=== PATIENT | male | born 1930 | race Caucasian/White ===

== ENCOUNTER 2018-05-03 19:40 | Emergency (ER) | payer MEDICARE, MEDICAID ==
[~2018-05-03] VITALS: Ht 182.9 cm; Wt 79.4 kg
[2018-05-03 20:04] LABS: BASOPHILS % (AUTO) 0 % (0-10); EOSINOPHILS # (AUTO) 0.1 10^3/uL (0.0-0.3); EOSINOPHILS % (AUTO) 2 % (0-10); HEMATOCRIT 38 % (40-54); HEMOGLOBIN 12.6 G/DL (13.3-17.7); LYMPHOCYTES # (AUTO) 1.2 X 10^3 (1.0-4.0); LYMPHOCYTES % (AUTO) 19 % (12-44); MEAN CORPUSCULAR HEMOGLOBIN 32 PG (25-34); MEAN CORPUSCULAR HGB CONC 33 G/DL (32-36); MEAN CORPUSCULAR VOLUME 96 FL (80-99); MEAN PLATELET VOLUME 8.8 FL (7.4-10.4); MONOCYTES # (AUTO) 0.7 X 10^3 (0.0-1.0); MONOCYTES % (AUTO) 11 % (0-12); NEUTROPHILS # (AUTO) 4.2 X 10^3 (1.8-7.8); NEUTROPHILS % (AUTO) 68 % (42-75); PLATELET COUNT 127 10^3/uL (130-400); RED BLOOD COUNT 3.93 10^6/uL (4.35-5.85); RED CELL DISTRIBUTION WIDTH 12.2 % (10.0-14.5); WHITE BLOOD COUNT 6.3 10^3/uL (4.3-11.0)
[2018-05-03 20:18] LABS: ALANINE AMINOTRANSFERASE 21 U/L (0-55); ALBUMIN 3.4 GM/DL (3.2-4.5); ALKALINE PHOSPHATASE 108 U/L (40-136); BILIRUBIN,TOTAL 0.4 MG/DL (0.1-1.0); BUN/CREATININE RATIO 17; CALCIUM 8.9 MG/DL (8.5-10.1); CARBON DIOXIDE 24 MMOL/L (21-32); CHLORIDE 102 MMOL/L (98-107); CREATININE SERUM 1.26 MG/DL (0.60-1.30); GFR ESTIMATED 54; GLUCOSE 102 MG/DL (70-105); POTASSIUM 4.1 MMOL/L (3.6-5.0); SODIUM 137 MMOL/L (135-145); TOTAL PROTEIN 7.3 GM/DL (6.4-8.2)
[2018-05-03 20:18] LABS: BILIRUBIN,URINE NEGATIVE (NEGATIVE); COLOR,URINE RED; GLUCOSE, URINE (UA) NEGATIVE (NEGATIVE); KETONES,URINE NEGATIVE (NEGATIVE); LEUKOCYTE ESTERASE ,URINE 3+ (NEGATIVE); NITRITE,URINE NEGATIVE (NEGATIVE); PH,URINE 6.5 (5-9); PROTEIN,URINE 3+ (NEGATIVE); UROBILINOGEN,URINE 1 MG/DL (NORMAL)
[2018-05-03 20:22] LABS: INR 1.2 (0.8-1.4); PROTHROMBIN TIME PATIENT 15.4 SEC (12.2-14.7)
[2018-05-03 20:24] LABS: VALPROIC ACID 33.1 UG/ML (50.0-100.0)
[2018-05-03 20:25] LABS: BACTERIA,URINE MODERATE /HPF; CLARITY,URINE CLOUDY; RBC,URINE TNTC /HPF; WBC,URINE >100 /HPF
--- NOTE | 2018-05-03 20:53 | Diagnostic Imaging Report ---
PROCEDURE: CT head and CT cervical spine without contrast. TECHNIQUE: Multiple contiguous axial images were obtained through the brain and cervical spine without the use of intravenous contrast. Sagittal and coronal reformations through the cervical spine were then performed. INDICATION: Fall. Altered mental status. Very confused and uncooperative. FINDINGS: CT head: There is marked cortical atrophy. Diffuse periventricular white matter changes. The ventricles are slightly prominent. There is no evidence of intracranial hemorrhage. No mass effect. No extra-axial fluid collections. Basal cisterns are clear. The mastoid air cells are well-aerated and clear. Paranasal sinuses are clear where visualized. No calvarial fractures demonstrated. IMPRESSION: Marked cortical atrophy both supratentorial and infratentorial. No acute abnormalities demonstrated. Cervical spine: Sagittal and coronal reformatted images show good alignment. Body height is well maintained. Facets show good alignment. There is advanced degenerative disc and facet disease throughout most severe centered at C5-C6 and C6-C7. There does not appear to be significant spinal stenosis. There are no fractures demonstrated. There is extremely dense calcification within the carotid arteries bilaterally with probable high-grade stenosis of the internal carotid arteries. IMPRESSION: 1. Advanced degenerative cervical disc disease from C5 through C7. No acute findings along the cervical spine. 2. Extremely dense calcification within the carotid bulbs and proximal internal carotid arteries. Dictated by: Dictated on workstation # [id number]
--- NOTE | 2018-05-03 21:08 | Diagnostic Imaging Report ---
INDICATION: Fall. Altered mental status with confusion. EXAMINATION: Portable chest. FINDINGS: Lungs show relatively good aeration. Median sternotomy changes are present. Heart is enlarged. Mild interstitial prominence noted, bilaterally. No evidence of consolidated infiltrate. No finding to suggest congestive failure. No pleural effusion. No displaced rib fractures. IMPRESSION: Cardiomegaly with postoperative residue. Mild interstitial prominence which may be acute or chronic. Dictated by: Dictated on workstation # [id number]
--- NOTE | 2018-05-03 21:09 | Diagnostic Imaging Report ---
INDICATION: Fall. Altered mental status with confusion. EXAMINATION: AP pelvis and right hip. FINDINGS: Bony pelvis is intact without fracture. SI joints are symmetrical. Pubic symphysis is normal. Femoral heads are in normal articulation, bilaterally. Two views of the right hip shows smooth surface without fracture. Trochanter and neck are normal. No soft tissue calcification. IMPRESSION: Mild degenerative changes without evidence of acute fracture or dislocation. Dictated by: Dictated on workstation # [id number]
--- NOTE | 2018-05-03 21:12 | Diagnostic Imaging Report ---
INDICATION: Fall. Altered mental status. Confusion. EXAMINATION: Three views of the right shoulder. FINDINGS: There is mild cephalad migration of the humeral head with respect to the glenoid consistent with chronic rotator cuff disease. Articulating surfaces are smooth with mild degenerative change. There are no fractures. AC joint shows good alignment with moderate hypertrophic change. IMPRESSION: Degenerative changes, as described, with no evidence of fracture or dislocation. Dictated by: Dictated on workstation # [id number]
[2018-05-03] MEDS ORDERED: AMLO5TAB7 (21:16)
[2018-05-03] MEDS ORDERED: TERA5CAP3 (21:16)
[2018-05-03] MEDS ORDERED: FURO20TA4 (21:16)
[2018-05-03] MEDS ORDERED: FAMO20TA5 (21:16)
[2018-05-03] MEDS ORDERED: GABA-488 (21:16)
[2018-05-03] MEDS ORDERED: DIVA125C10 (21:16)
[2018-05-03] MEDS ORDERED: cefTRIAXone 1 GM/10 ML for IV (ROCEPHIN) ONE (21:27)
[2018-05-03] MEDS ORDERED: NS (IVPB) 0 ML ONE (21:27)
--- NOTE | 2018-05-03 21:27 | ED Fall/Injury ---
General Chief Complaint: Trauma-Non Activation Stated Complaint: FALL Nursing Triage Note: Pt brought to E via EMS. Pt experienced unwitnessed fall at senior care and has L hip bruise. Source: EMS, senior care records (ALL PMH IS FROM [facility], RECORD--NO PRIOR VISITS HERE, NO FAMILY HERE WITH PT. ) Exam Limitations: other (PT WITH DEMENTIA AND UNABLE TO GIVE ANY INFORMATION) History of Present Illness Date Seen by Provider: May 03, 2018 Time Seen by Provider: 19:50 Initial Comments PT ARRIVES VIA EMS FROM [facility] PT HAD UNWITNESSED "FALL" IN DINING ROOM AT 1830 TONIGHT PT HAS DEMENTIA AND IS UNABLE TO ANSWER ANY QUESTIONS PT IS ON ELIQUIS AND HAS A BRUISE TO LEFT HIP EMS ALSO REPORT REDNESS TO RIGHT SHOULDER. NO OTHER INFORMATION IS OBTAINABLE PT HAS BEEN AT [facility] SINCE 03/13/18. CAME THERE FROM [facility] PREVIOUSLY FROM [facility] RECORD LISTS DAUGHTER LEGAL GUARDIAN, FROM SAME PREVIOUS ADDRESS FOR PT IN [place], [place] PT IS DNR Location Injury Occurred: senior care PCP: DR. BRUCE Allergies and Home Medications Allergies Coded Allergies: No Allergy Information Available (Unverified , 05/03/18) Home Medications Nitrofurantoin Monohyd/M-Cryst 100 Mg Capsule, 100 MG PO BID Prescribed by: HARLEY JERNIGAN on 05/03/18 7142 Patient Home Medication List Home Medication List Reviewed: Yes Review of Systems Review of Systems Constitutional: other (UNEBLE TO OBTAIN) Past Ujhnjef-Yfnnwh-Sdwoei Hx Patient Social History Smoking Status: Unknown if Ever Smoked 2nd Hand Smoke Exposure: No Recent Foreign Travel: No Contact w/Someone Who Travel: No Recent Infectious Disease Expo: No Physical Abuse: No Sexual Abuse: No Immunizations Up To Date Tetanus Booster (TDap): Unknown Past Medical History Surgeries: No (UNKNOWN) Cardiac: Yes (ATRIAL FLUTTER; CHF) Atrial Fibrillation, High Cholesterol, Hypertension 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) Dementia Sexually Transmitted Disease: No Genitourinary: Yes (chronic kidney disease) Benign Prostatic Hyperpl, Renal Failure Gastrointestinal: Yes (DYSPNAGIA) Gastroesophageal Reflux Musculoskeletal: Yes (GENERALIZED WEAKNESS, GAIT DISTURBANCE) HEENT: Yes Dysphagia Psychosocial: Yes (psychotic disorder w/delusions; AGITATION AND RESTLESSNESS) Depression Integumentary: No Blood Disorders: No Adverse Reaction/Blood Tranf: No Physical Exam Vital Signs Vital Signs - First Documented 05/03/18 19:43 Temp 99.2 Pulse 98 Resp 18 B/P (MAP) 70/35 (47) Pulse Ox 94 O2 Delivery Room Air Capillary Refill : Less Than 3 Seconds Height, Weight, BMI Height: 6'0" Weight: 175lbs. oz. 79.539602zm; BMI Method:Estimated General Appearance: WD/WN, no apparent distress, other (SMILING, TALKATIVE BUT IS COMPLETELY NONSENSICAL. PT DOES NOT APPEAR TO BE TENDER ANYWHERE HE IS TOUCHED. ON DIRECT QUESTIONING OF PT IF HE HURTS ANYWHERE, HE STATES NO. ) HEENT: PERRL/EOMI, normal ENT inspection, other (ORAL MUCOSA MILDLY DRY; NO EXTERNAL EVIDNECE OF TRAUMA TO HEAD) Neck: non-tender, full range of motion, supple, normal inspection Cardiovascular: normal peripheral pulses, no edema, no JVD, no murmur, irregularly irregular Respiratory: chest non-tender, normal breath sounds, no respiratory distress, no accessory muscle use, other (OLDER APPEARING BRUISE TO LEFT LATERAL CHEST/ RIB AREA) Gastrointestinal: normal bowel sounds, non tender, soft, no organomegaly Back: normal inspection, no CVA tenderness, no vertebral tenderness Extremities: normal range of motion, non-tender, no pedal edema, no calf tenderness, normal capillary refill, other (FAINT, SMALL BRUISE TO RIGHT HIP; LARGER, OLDER APPEARING BRUISE TO LEFT HIP. ) Neurologic/Psychiatric: no motor/sensory deficits, alert, normal mood/affect, other (PT DOES NOT FOLLOW COMMANDS, BUT GROSS NEUROLOGICAL APPEARS INTACT. SPEECH IS NON-SENSICAL. PT SMILING AND COOPERATIVE. PT DOES MOVE HIMSELF TO SITTING POSITION IN MIDDLE OF ER CART WITHOUT DIFFICULTY. ) Skin: normal color, warm/dry, ecchymosis Progress/Results/Core Measures Results/Orders Lab Results Laboratory Tests Test 05/03/18 19:50 05/03/18 20:12 Range/Units White Blood Count 6.3 4.3-11.0 10^3/uL Red Blood Count 3.93 L 4.35-5.85 10^6/uL Hemoglobin 12.6 L 13.3-17.7 G/DL Hematocrit 38 L 40-54 % Mean Corpuscular Volume 96 80-99 FL Mean Corpuscular Hemoglobin 32 25-34 PG Mean Corpuscular Hemoglobin Concent 33 32-36 G/DL Red Cell Distribution Width 12.2 10.0-14.5 % Platelet Count 127 L 130-400 10^3/uL Mean Platelet Volume 8.8 7.4-10.4 FL Neutrophils (%) (Auto) 68 42-75 % Lymphocytes (%) (Auto) 19 12-44 % Monocytes (%) (Auto) 11 0-12 % Eosinophils (%) (Auto) 2 0-10 % Basophils (%) (Auto) 0 0-10 % Neutrophils # (Auto) 4.2 1.8-7.8 X 10^3 Lymphocytes # (Auto) 1.2 1.0-4.0 X 10^3 Monocytes # (Auto) 0.7 0.0-1.0 X 10^3 Eosinophils # (Auto) 0.1 0.0-0.3 10^3/uL Basophils # (Auto) 0.0 0.0-0.1 10^3/uL Prothrombin Time 15.4 H 12.2-14.7 SEC INR Comment 1.2 0.8-1.4 Activated Partial Thromboplast Time 29 24-35 SEC Sodium Level 137 135-145 MMOL/L Potassium Level 4.1 3.6-5.0 MMOL/L Chloride Level 102 98-107 MMOL/L Carbon Dioxide Level 24 21-32 MMOL/L Anion Gap 11 5-14 MMOL/L Blood Urea Nitrogen 21 H 7-18 MG/DL Creatinine 1.26 0.60-1.30 MG/DL Estimat Glomerular Filtration Rate 54 BUN/Creatinine Ratio 17 Glucose Level 102 70-105 MG/DL Calcium Level 8.9 8.5-10.1 MG/DL Corrected Calcium 9.4 8.5-10.1 MG/DL Total Bilirubin 0.4 0.1-1.0 MG/DL Aspartate Amino Transf (AST/SGOT) 22 5-34 U/L Alanine Aminotransferase (ALT/SGPT) 21 0-55 U/L Alkaline Phosphatase 108 40-136 U/L Troponin I < 0.30 <0.30 NG/ML Total Protein 7.3 6.4-8.2 GM/DL Albumin 3.4 3.2-4.5 GM/DL Valproic Acid (Depakene) Level 33.1 L 50.0-100.0 UG/ML Urine Color RED H Urine Clarity CLOUDY H Urine pH 6.5 5-9 Urine Specific [place] 1.020 1.016-1.022 Urine Protein 3+ H NEGATIVE Urine Glucose (UA) NEGATIVE NEGATIVE Urine Ketones NEGATIVE NEGATIVE Urine Nitrite NEGATIVE NEGATIVE Urine Bilirubin NEGATIVE NEGATIVE Urine Urobilinogen 1 NORMAL MG/DL Urine Leukocyte Esterase 3+ H NEGATIVE Urine RBC (Auto) 5+ H NEGATIVE Urine RBC TNTC H /HPF Urine WBC >100 H /HPF Urine Crystals NONE /LPF Urine Bacteria MODERATE H /HPF Urine Casts NONE /LPF Urine Mucus NEGATIVE /LPF Urine Culture Indicated YES My Orders Orders - HARLEY JERNIGAN DO Saline Lock/Iv-Start (05/03/18 19:51) Ekg Tracing (05/03/18 19:51) Monitor-Rhythm Ecg Trace Only (05/03/18 19:51) Ct Head/Cervical Spine Wo (05/03/18 19:51) Cbc With Automated Diff (05/03/18 19:51) Comprehensive Metabolic Panel (05/03/18 19:51) Protime With Inr (05/03/18 19:51) Partial Thromboplastin Time (05/03/18 19:51) Troponin I (05/03/18 19:51) Ua Culture If Indicated (05/03/18 19:51) Valproic Acid (05/03/18 19:51) Chest 1 View, Ap/Pa Only (05/03/18 19:51) Shoulder, Right, 3 Views (05/03/18 19:51) Pelvis With Right Hip 2-3views (05/03/18 19:51) Urine Culture (05/03/18 20:12) Ceftriaxone For Iv Use (Rocephin For I (05/03/18 21:30) Ceftriaxone For Iv Use (Rocephin For I (05/03/18 21:27) Ns (Ivpb) (Sodium Chloride 0.9% Ivpb Bag (05/03/18 21:27) Ns (Ivpb) (Sodium Chloride 0.9% Ivpb Bag (05/03/18 21:30) Hip, Left, 2 Views (05/03/18 21:32) Saline Lock/Iv-Start (05/03/18 21:36) Lactated Ringers (Lr 1000 Ml Iv Solution (05/03/18 21:36) Medications Given in ED Current Medications Medications Dose Ordered Sig/Giovanna Route Start Time Stop Time Status Last Admin Dose Admin Ceftriaxone Sodium 1000 mg/ Sodium Chloride 50 ml @ 100 mls/hr ONCE ONCE IV 05/03/18 21:30 05/03/18 22:48 DC 05/03/18 21:36 100 MLS/HR Lactated Ringer's 1,000 ml @ 0 mls/hr Q0M ONCE IV 05/03/18 21:36 05/03/18 21:37 DC 05/03/18 21:42 1,000 MLS/HR Vital Signs/I&O 05/03/18 05/03/18 19:43 22:47 Temp 99.2 99.0 Pulse 98 87 Resp 18 15 B/P (MAP) 70/35 (47) 104/79 (87) Pulse Ox 94 95 O2 Delivery Room Air Room Air Blood Pressure Mean: 47 Progress Progress Note : Progress Note NO DETERIORATION IN PT'S CONDITION DURING ER STAY Initial ECG Impression Date: May 03, 2018 Initial ECG Impression Time: 20:02 Initial ECG Rate: 88 Initial ECG Rhythm: A Fib/Flutter Initial ECG Comparisson: No Previous ECG Available Diagnostic Imaging Comments CT HEAD/CERVICAL SPINE--ATROPHY, CHRONIC DEGENERATIVE CHANGES, NO ACUTE PROCESS. 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 PER RADIOLOGIST REPORT @ 2058 CXR--CHRONIC CHANGES, NO ACUTE PROCESS RIGHT SHOULDER XRAY--CHRONIC DEGENERATIVE CHANGES, NO ACUTE PROCESS PELVIS AND RIGHT HIP--CHRONIC DEGENERATIVE CHANGES, NO ACUTE PROCESS ALL PER RADIOLOGIST REPORTS @ 2122 XRAYS OF LEFT HIP--NO ACUTE PROCESS, PENDING RADIOLOGIST REVIEW Departure Impression Primary Impression: UNWITNESSED FALL VS SYNCOPE Additional Impressions: Dementia ANTICOAGULATION THERAPY UTI (urinary tract infection) Contusion of right hip Contusion of right shoulder Contusion of left hip Contusion of left chest wall Disposition: 03 XFER SNF Condition: Stable Departure-Patient Inst. Referrals: VIRGINIA BRUCE DO (PCP/Family) Primary Care Physician Patient Instructions: CHEST CONTUSION, Contusion (DC), Preventing Falls in the Older Adult, Urinary Tract Infection, Adult (DC) Add. Discharge Instructions: CONTINUE YOUR REGULAR MEDICATIONS PRESCRIBED FOLLOW UP WITH YOUR DR THIS WEEK FOR RECHECK All discharge instructions reviewed with patient and/or family. Voiced understanding. Scripts Nitrofurantoin Monohyd/M-Cryst (Macrobid 100 mg Capsule) 100 Mg Capsule 100 MG PO BID, #20 CAP Prov: HARLEY JERNIGAN DO 05/03/18 HARLEY JERNIGAN DO May 03, 2018 21:27
[2018-05-03] MEDS ORDERED: cefTRIAXone FOR IV USE 1,000 MG in NS (IVPB) 50 ML IV ONE (21:30)
[2018-05-03] MEDS ORDERED: NS (IVPB) 50 ML ONE (21:30)
[2018-05-03] MEDS ORDERED: LACTATED RINGERS 1,000 ML IV ONE (21:36)
[2018-05-03] MEDS ORDERED: NITR-65 PO (21:53)
--- NOTE | 2018-05-03 21:57 | Diagnostic Imaging Report ---
INDICATION: Left hip pain. Poor historian. EXAMINATION: Two views of the left hip. FINDINGS: Femoral head is in normal articulation with the acetabulum. There are mild degenerative changes. The articulating surfaces are smooth without fracture. The femoral neck and trochanter are intact. No hypertrophic bony changes. No soft tissue calcifications. IMPRESSION: Mild degenerative disease with no acute abnormalities. Dictated by: Dictated on workstation # [id number]
[2018-05-03 22:47] VITALS: BP 104/79
== END 2018-05-03 22:47 ==
LOC: ER 19:44
DX: S70.02XA Contusion of left hip, initial encounter (principal); S70.01XA Contusion of right hip, initial encounter; S40.011A Contusion of right shoulder, initial encounter; S20.222A Contusion of left back wall of thorax, initial encounter; F03.91 Unspecified dementia, unspecified severity, with behavioral disturbance; N39.0 Urinary tract infection, site not specified; I48.91 Unspecified atrial fibrillation; E78.00 Pure hypercholesterolemia, unspecified; I12.9 Hypertensive chronic kidney disease with stage 1 through stage 4 chronic kidney disease, or unspecified chronic kidney disease; N18.9 Chronic kidney disease, unspecified; N40.0 Benign prostatic hyperplasia without lower urinary tract symptoms; K21.9 Gastro-esophageal reflux disease without esophagitis; Z79.01 Long term (current) use of anticoagulants; W18.39XA Other fall on same level, initial encounter; Y92.129 Unspecified place in nursing home as the place of occurrence of the external cause
CPT/HCPCS: 36415; 70450; 71045; 72125; 73030; 73502; 80053; 80164; 81000; 84484; 85025; 85610; 85730; 87088; 93005; 93041

== ENCOUNTER → 2018-06-05 | Outpatient (CLI) | payer MEDICARE, MEDICAID ==
[~2018-06-05] MED LIST: ACET325T38 PO; AMLO5TAB7 PO; APIX5TAB PO; CLIN300C3 PO; DIVA-76 PO; DIVA125C10; FAMO20TA5 PO; FURO20TA4 PO; GABA-488 PO; LACT20SO2 PO; LOPE-134 PO; MAGN400O7 PO; MELA5TAB14 PO; NITR-65 PO; OXYB5TAB9 PO; QUET50TA PO; TERA5CAP3 PO
--- NOTE | 2018-06-05 18:15 | Diagnostic Imaging Report ---
EXAMINATION: Mandible. INDICATION: Swollen jaw. Three views were obtained. There are no prior studies available for comparison. FINDINGS: There is no fracture, dislocation, or acute bony abnormality evident. The patient is edentulous. There does seem to be soft tissue edema lateral to the left mandible. If there is clinical concern regarding a mass or abscess in this area, then CT of the maxillofacial bones would be recommended for additional study. IMPRESSION: There is no acute bony abnormality identified. However, there is soft tissue edema lateral to the left mandible. Recommendations as above. Dictated by: Dictated on workstation # [id number]
== END ==
LOC: RAD 14:27
PROVIDERS: ATTEND Family Medicine
DX: R22.0 Localized swelling, mass and lump, head (principal)
CPT/HCPCS: 70100

== ENCOUNTER 2018-06-08 15:00 | Inpatient (IN) | payer MEDICARE, MEDICAID ==
[~2018-06-08] VITALS: Ht 182.9 cm; Wt 75.9 kg
[~2018-06-08 15:00] MED LIST changes: -ACET325T38 PO; -APIX5TAB PO; -CLIN300C3 PO; -DIVA-76 PO; -LACT20SO2 PO; -LOPE-134 PO; -MAGN400O7 PO; -MELA5TAB14 PO; -OXYB5TAB9 PO; -QUET50TA PO
--- NOTE | 2018-06-08 15:10 | ED EENT ---
History of Present Illness General Source: group home records Exam Limitations: no limitations History of Present Illness Date Seen by Provider: Jun 08, 2018 Time Seen by Provider: 15:08 Initial Comments To ER per private vehicle from local group home with swelling to the left cheek for several days. He had an x-ray of the onset of this which was unremarkable. Timing/Duration: gradual Severity: moderate Location: facial Prearrival Treatment: no prearrival treatment Allergies and Home Medications Allergies Coded Allergies: No Allergy Information Available (Unverified , 05/03/18) Home Medications Nitrofurantoin Monohyd/M-Cryst 100 Mg Capsule, 100 MG PO BID Prescribed by: HARLEY JERNIGAN on 05/03/18 5973 Patient Home Medication List Home Medication List Reviewed: Yes Review of Systems Review of Systems Constitutional: see HPI; No chills, No fever Eyes: No Symptoms Reported Ears: No Symptoms Reported Nose: no symptoms reported Mouth: no symptoms reported Throat: no symptoms reported Respiratory: no symptoms reported Cardiovascular: no symptoms reported Musculoskeletal: no symptoms reported Past Avvetsw-Vymwbx-Fpvdco Hx Patient Social History 2nd Hand Smoke Exposure: No Immunizations Up To Date Tetanus Booster (TDap): Unknown Past Medical History Surgeries: No (UNKNOWN) Cardiac: Yes (ATRIAL FLUTTER; CHF) Atrial Fibrillation, High Cholesterol, Hypertension 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) Dementia Sexually Transmitted Disease: No Genitourinary: Yes (chronic kidney disease) Benign Prostatic Hyperpl, Renal Failure Gastrointestinal: Yes (DYSPNAGIA) Gastroesophageal Reflux Musculoskeletal: Yes (GENERALIZED WEAKNESS, GAIT DISTURBANCE) HEENT: Yes Dysphagia Psychosocial: Yes (psychotic disorder w/delusions; AGITATION AND RESTLESSNESS) Depression Integumentary: No Blood Disorders: No Adverse Reaction/Blood Tranf: No Physical Exam Vital Signs Vital Signs - First Documented 06/08/18 15:05 Temp 97.9 Pulse 79 Resp 16 B/P (MAP) 102/44 (63) Pulse Ox 98 Height, Weight, BMI Height: 6'0" Weight: 175lbs. oz. 79.488189md; BMI Method:Estimated General Appearance: WD/WN, no apparent distress Eyes: bilateral eye normal inspection, bilateral eye PERRL, bilateral eye EOMI Ears: bilateral ear auricle normal, bilateral ear canal normal, bilateral ear TM normal Nose: normal inspection Mouth/Throat: other (to ER with swelling to the left cheek over the region of the parotid gland and there is also erythema.) Neck: non-tender, full range of motion Respiratory: no respiratory distress, no accessory muscle use Gastrointestinal: normal bowel sounds, non tender, soft Neurologic/Psychiatric: alert, normal mood/affect, oriented x 3 Skin: normal color, warm/dry Progress/Results/Core Measures Results/Orders Lab Results Laboratory Tests Test 06/08/18 15:15 Range/Units White Blood Count 9.9 4.3-11.0 10^3/uL Red Blood Count 4.24 L 4.35-5.85 10^6/uL Hemoglobin 13.3 13.3-17.7 G/DL Hematocrit 41 40-54 % Mean Corpuscular Volume 97 80-99 FL Mean Corpuscular Hemoglobin 31 25-34 PG Mean Corpuscular Hemoglobin Concent 32 32-36 G/DL Red Cell Distribution Width 13.1 10.0-14.5 % Platelet Count 173 130-400 10^3/uL Mean Platelet Volume 9.4 7.4-10.4 FL Neutrophils (%) (Auto) 75 42-75 % Lymphocytes (%) (Auto) 13 12-44 % Monocytes (%) (Auto) 10 0-12 % Eosinophils (%) (Auto) 2 0-10 % Basophils (%) (Auto) 0 0-10 % Neutrophils # (Auto) 7.4 1.8-7.8 X 10^3 Lymphocytes # (Auto) 1.3 1.0-4.0 X 10^3 Monocytes # (Auto) 1.0 0.0-1.0 X 10^3 Eosinophils # (Auto) 0.2 0.0-0.3 10^3/uL Basophils # (Auto) 0.0 0.0-0.1 10^3/uL Sodium Level 140 135-145 MMOL/L Potassium Level 5.8 H 3.6-5.0 MMOL/L Chloride Level 104 98-107 MMOL/L Carbon Dioxide Level 26 21-32 MMOL/L Anion Gap 10 5-14 MMOL/L Blood Urea Nitrogen 31 H 7-18 MG/DL Creatinine 1.26 0.60-1.30 MG/DL Estimat Glomerular Filtration Rate 54 BUN/Creatinine Ratio 25 Glucose Level 164 H 70-105 MG/DL Calcium Level 9.4 8.5-10.1 MG/DL My Orders Orders - JUAN ANTONIO BOOTH APRN Ct Maxillofacial W (06/08/18 15:07) Cbc With Automated Diff (06/08/18 15:07) Basic Metabolic Panel (06/08/18 15:07) Iv Heplock-Insert (Order) (06/08/18 15:07) Ns Iv 500 Ml (Sodium Chloride 0.9%) (06/08/18 15:45) Iohexol Injection (Omnipaque 350 Mg/Ml 1 (06/08/18 16:00) Contrast Received (Contrast Received) (06/08/18 16:00) Ns (Ivpb) (Sodium Chloride 0.9%) (06/08/18 16:00) Clindamycin 900 Mg/50 Ml Ivpb (Cleocin P (06/08/18 16:15) Medications Given in ED Current Medications Medications Dose Ordered Sig/Giovanna Route Start Time Stop Time Status Last Admin Dose Admin Clindamycin Phosphate/Dextrose 50 ml @ 100 mls/hr ONCE ONCE IV 06/08/18 16:15 06/08/18 16:44 DC 06/08/18 16:28 100 MLS/HR Vital Signs/I&O 06/08/18 15:05 Temp 97.9 Pulse 79 Resp 16 B/P (MAP) 102/44 (63) Pulse Ox 98 Departure Communication (Admissions) Time/Spoke to Admitting Phy: 16:[address] Bruce. We will admit, repeat labs in the morning and consult Dr. Avila. Time/Spoke to Consulting Phy: 17:03 I discussed the case with Dr. Avila who recommends clindamycin and Decadron. Impression Primary Impression: Acute parotitis Additional Impression: Abscess of left internal cheek Disposition: ADMITTED INPATIENT Condition: Stable Admissions Decision to Admit Reason: Admit from ER (General) Decision to Admit/Date: Jun 08, 2018 Time/Decision to Admit Time: 17:04 Departure-Patient Inst. Referrals: VIRGINIA BRUCE DO (PCP/Family) Primary Care Physician JUAN ANTONIO BOOTH APRN Jun 08, 2018 15:10
[2018-06-08 15:26] LABS: BASOPHILS % (AUTO) 0 % (0-10); EOSINOPHILS # (AUTO) 0.2 10^3/uL (0.0-0.3); EOSINOPHILS % (AUTO) 2 % (0-10); HEMATOCRIT 41 % (40-54); HEMOGLOBIN 13.3 G/DL (13.3-17.7); LYMPHOCYTES # (AUTO) 1.3 X 10^3 (1.0-4.0); LYMPHOCYTES % (AUTO) 13 % (12-44); MEAN CORPUSCULAR HEMOGLOBIN 31 PG (25-34); MEAN CORPUSCULAR HGB CONC 32 G/DL (32-36); MEAN CORPUSCULAR VOLUME 97 FL (80-99); MEAN PLATELET VOLUME 9.4 FL (7.4-10.4); MONOCYTES % (AUTO) 10 % (0-12); NEUTROPHILS # (AUTO) 7.4 X 10^3 (1.8-7.8); NEUTROPHILS % (AUTO) 75 % (42-75); PLATELET COUNT 173 10^3/uL (130-400); RED BLOOD COUNT 4.24 10^6/uL (4.35-5.85); RED CELL DISTRIBUTION WIDTH 13.1 % (10.0-14.5); WHITE BLOOD COUNT 9.9 10^3/uL (4.3-11.0)
[2018-06-08 15:40] LABS: CALCIUM 9.4 MG/DL (8.5-10.1); CREATININE SERUM 1.26 MG/DL (0.60-1.30); POTASSIUM 5.8 MMOL/L (3.6-5.0)
[2018-06-08] MEDS ORDERED: NS IV 500 ML 500 ML IV SCH (15:45)
[2018-06-08] MEDS ORDERED: RECEIVED CONTRAST (Hold Metformin) IV SCH (16:00)
[2018-06-08] MEDS ORDERED: NS 250 ML (IVPB) BAG IV ONE (16:00)
[2018-06-08] MEDS ORDERED: IOHEXOL 350 MG/ML 100 ML (OMNIPAQUE 350) VIAL IV ONE (16:00)
[2018-06-08] MEDS ORDERED: CLINDAMYCIN 900 MG/50 ML IVPB 50 ML IV ONE (16:15)
--- NOTE | 2018-06-08 16:46 | Diagnostic Imaging Report ---
PROCEDURE: CT maxillofacial with contrast. TECHNIQUE: After intravenous administration of contrast, axial images were obtained through the face and reformatted into coronal and sagittal planes. INDICATION: Swelling of the left side of the face. COMPARISON: Radiographs from 06/05/2018. CT from 05/03/2018. FINDINGS: In the region of the left masseter, there is significant soft tissue density with peripheral enhancement measuring approximately 3.1 x 2.4 cm on axial imaging, and 3 cm craniocaudal. This underlies the anterior aspect of the parotid gland and the left parotid gland demonstrates increased edema and enlargement as well. There is overlying subcutaneous edema. No soft tissue gas is seen. No significant extension to the deep soft tissues is appreciated. No acute fracture is seen. No erosive changes are seen. The patient is edentulous. The paranasal sinuses are clear. The orbits appear normal with no postseptal edema seen. Imaged portions of the intracranial structures demonstrate generalized parenchymal volume loss. There is diffuse atherosclerosis. IMPRESSION: 1. Moderate-sized fluid collection in the region of the left masseter with peripheral enhancement, concerning for abscess. In the setting of trauma, hematoma would be in the differential as well. Enlargement and inflammation of the adjacent left parotid is consistent with parotiditis. 2. The patient is edentulous. No acute osseous abnormality is seen. Dictated by: Dictated on workstation # [id number]
[2018-06-08] MEDS ORDERED: CATHETER FLUSH 10 ML SYR IV PRN (18:45)
[2018-06-08] MEDS ORDERED: HYDROcodone/APAP 5 MG/325 MG (LORTAB) TAB PO PRN (18:45)
--- NOTE | 2018-06-08 18:46 | History & Physicial ---
History of Present Illness History of Present Illness Reason for visit/HPI Patient is resident of a correction. Left side of his face swollen. X-ray done on January was negative. Patient sent out to the emergency room today. CT shows left abscess and left parotid inflamed. 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 Left ear cancer. Prostate cancer. Patient's father of malignant brain tumor Date of Admission Jun 08, 2018 at 17:01 Date Seen by a Provider: Jun 08, 2018 Time Seen by a Provider: 18:41 I consulted on this patient on 06/08/18 18:33 Attending Physician Gene Bruce DO Admitting Physician Gene Bruce DO Consult Allergies and Home Medications Allergies Coded Allergies: No Allergy Information Available (Unverified , 05/03/18) Home Medications Nitrofurantoin Monohyd/M-Cryst 100 Mg Capsule, 100 MG PO BID Prescribed by: HARLEY JERNIAGN on 05/03/18 1103 Patient Home Medication List Home Medication List Reviewed: No Past Skjyhei-Pkobcd-Qmjkyj Hx Patient Social History Employed/Student: retired Alcohol Use: Denies Use Recreational Drug Use: No Smoking Status: Never a Smoker 2nd Hand Smoke Exposure: No Recent Foreign Travel: No Contact w/other who traveled: No Recent Infectious Disease Expo: No Immunizations Up To Date Tetanus Booster (TDap): Unknown Surgeries Yes Cardiovascular Yes (ATRIAL FLUTTER; CHF) Atrial Fibrillation, High Cholesterol, Hypertension Neurological Yes (VASCULAR DEMENTIA WITH BEHAVIOR DISTURBANCE) Dementia Reproductive System Sexually Transmitted Disease: No Genitourinary Yes (chronic kidney disease) Benign Prostatic Hyperpl, Renal Failure Gastrointestinal Yes (DYSPNAGIA) Gastroesophageal Reflux Musculoskeletal Yes (GENERALIZED WEAKNESS, GAIT DISTURBANCE) HEENT History of HEENT Disorders: Yes HEENT Disorders: Dysphagia Psychosocial History of Psychiatric Problem: Yes (psychotic disorder w/delusions; AGITATION AND RESTLESSNESS) Behavioral Health Disorders: Depression Integumentary History of Skin or Integumenta: No Blood Transfusions History of Blood Disorders: No Adverse Reaction to a Blood Tr: No Review of Systems Constitutional: no symptoms reported EENTM: other (Less swelling of face and parotid) Respiratory: no symptoms reported Cardiovascular: other (Irregular irregularity, valve over 10 years ago) Gastrointestinal: no symptoms reported Genitourinary: no symptoms reported Physical Exam Vital Signs Vital Signs - First Documented 06/08/18 15:05 Temp 97.9 Pulse 79 Resp 16 B/P (MAP) 102/44 (63) Pulse Ox 98 Capillary Refill : Less Than 3 Seconds Height, Weight, BMI Height: 0'72.00" Weight: 175lbs. 0oz. 79.557244ge; BMI Method:Estimated General Appearance: No Apparent Distress, WD/WN HEENT: Normal ENT Inspection Neck: Normal Inspection Respiratory: Lungs Clear, No Accessory Muscle Use, No Respiratory Distress Cardiovascular: Irregularly Irregular Gastrointestinal: Non Tender, Soft Assessment/Plan Assessment and Plan Left facial abscess. Left parotiditis. Atrial fibrillation. Alzheimer's disease Admission Diagnosis Admission Status: Inpatient Order (span 2 midnights) Reason for Inpatient Admission: Abscess in left parotitis GENE BRUCE DO Jun 08, 2018 18:46
[2018-06-08 19:13] VITALS: BP 157/73
[2018-06-08] MEDS: NS IV 1000 ML 1,000 ML IV SCH (19:20)
[2018-06-08] MEDS: DEXAMETHASONE 10 MG/ML (DECADRON) 1 ML VIAL IV SCH (19:20)
[2018-06-08] MEDS: CLINDAMYCIN 900 MG/50 ML IVPB 50 ML IV SCH (23:58)
[2018-06-09] VITALS (7 sets, daily range): BP systolic 108–148; BP diastolic 59–73
[2018-06-09] MEDS: DEXAMETHASONE 10 MG/ML (DECADRON) 1 ML VIAL IV SCH ×3 (03:05→21:30)
[2018-06-09] MEDS: NS IV 1000 ML 1,000 ML IV SCH ×2 (03:12→15:25)
[2018-06-09 04:19] LABS: BASOPHILS % (AUTO) 0 % (0-10); EOSINOPHILS % (AUTO) 0 % (0-10); HEMATOCRIT 35 % (40-54); HEMOGLOBIN 11.3 G/DL (13.3-17.7); LYMPHOCYTES # (AUTO) 0.8 X 10^3 (1.0-4.0); LYMPHOCYTES % (AUTO) 12 % (12-44); MEAN CORPUSCULAR HEMOGLOBIN 32 PG (25-34); MEAN CORPUSCULAR HGB CONC 33 G/DL (32-36); MEAN CORPUSCULAR VOLUME 97 FL (80-99); MONOCYTES # (AUTO) 0.1 X 10^3 (0.0-1.0); MONOCYTES % (AUTO) 2 % (0-12); NEUTROPHILS # (AUTO) 5.7 X 10^3 (1.8-7.8); NEUTROPHILS % (AUTO) 86 % (42-75); PLATELET COUNT 161 10^3/uL (130-400); RED BLOOD COUNT 3.56 10^6/uL (4.35-5.85); RED CELL DISTRIBUTION WIDTH 12.6 % (10.0-14.5); WHITE BLOOD COUNT 6.6 10^3/uL (4.3-11.0)
[2018-06-09 04:41] LABS: ALANINE AMINOTRANSFERASE 18 U/L (0-55); ALBUMIN 2.9 GM/DL (3.2-4.5); ALKALINE PHOSPHATASE 115 U/L (40-136); BILIRUBIN,TOTAL 0.4 MG/DL (0.1-1.0); BUN/CREATININE RATIO 36; CALCIUM 8.8 MG/DL (8.5-10.1); CARBON DIOXIDE 23 MMOL/L (21-32); CHLORIDE 110 MMOL/L (98-107); CREATININE SERUM 0.88 MG/DL (0.60-1.30); GFR ESTIMATED > 60; GLUCOSE 142 MG/DL (70-105); POTASSIUM 4.1 MMOL/L (3.6-5.0); SODIUM 143 MMOL/L (135-145); TOTAL PROTEIN 7.1 GM/DL (6.4-8.2)
--- NOTE | 2018-06-09 08:00 | Progress Note (SOAP) ---
Subjective Time Seen by a Provider: 07:58 Subjective/Events-last exam Patient stable this morning. ENT wants to remove liquid from abscess. Patient off relic was for over 24 hours. Patient stable. Objective Exam Vital Signs Date Time Temp Pulse Resp B/P (MAP) Pulse Ox O2 Delivery O2 Flow Rate FiO2 06/09/18 00:12 98.6 93 20 110/73 (85) 95 Room Air 06/08/18 20:00 Room Air 06/08/18 19:13 97.4 87 19 157/73 (101) 98 Room Air 06/08/18 18:33 Room Air 06/08/18 17:49 97.9 79 16 102/44 (63) 98 06/08/18 15:05 97.9 79 16 102/44 (63) 98 I & O 06/09/18 07:00 Intake Total 1675 ml Balance 1675 ml Capillary Refill : Less Than 3 Seconds General Appearance: No Apparent Distress, WD/WN HEENT: Other (Carotid enlarged and has abscess on left) Neck: Normal Inspection Respiratory: Lungs Clear, No Accessory Muscle Use, No Respiratory Distress Cardiovascular: Irregularly Irregular Gastrointestinal: non tender, soft Results Lab Laboratory Tests 06/08/18 15:15 06/09/18 04:08 Laboratory Tests 06/08/18 15:15: White Blood Count 9.9, Red Blood Count 4.24L, Hemoglobin 13.3, Hematocrit 41, Mean Corpuscular Volume 97, Mean Corpuscular Hemoglobin 31, Mean Corpuscular Hemoglobin Concent 32, Red Cell Distribution Width 13.1, Platelet Count 173, Mean Platelet Volume 9.4, Neutrophils (%) (Auto) 75, Lymphocytes (%) (Auto) 13, Monocytes (%) (Auto) 10, Eosinophils (%) (Auto) 2, Basophils (%) (Auto) 0, Neutrophils # (Auto) 7.4, Lymphocytes # (Auto) 1.3, Monocytes # (Auto) 1.0, Eosinophils # (Auto) 0.2, Basophils # (Auto) 0.0, Sodium Level 140, Potassium Level 5.8H, Chloride Level 104, Carbon Dioxide Level 26, Anion Gap 10, Blood Urea Nitrogen 31H, Creatinine 1.26, Estimat Glomerular Filtration Rate 54, BUN/ Creatinine Ratio 25, Glucose Level 164H, Calcium Level 9.4 12/4/18 04:08: White Blood Count 6.6, Red Blood Count 3.56L, Hemoglobin 11.3L, Hematocrit 35L, Mean Corpuscular Volume 97, Mean Corpuscular Hemoglobin 32, Mean Corpuscular Hemoglobin Concent 33, Red Cell Distribution Width 12.6, Platelet Count 161, Mean Platelet Volume 9.0, Neutrophils (%) (Auto) 86H, Lymphocytes (%) (Auto) 12 , Monocytes (%) (Auto) 2, Eosinophils (%) (Auto) 0, Basophils (%) (Auto) 0, Neutrophils # (Auto) 5.7, Lymphocytes # (Auto) 0.8L, Monocytes # (Auto) 0.1, Eosinophils # (Auto) 0.0, Basophils # (Auto) 0.0, Sodium Level 143, Potassium Level 4.1, Chloride Level 110H, Carbon Dioxide Level 23, Anion Gap 10, Blood Urea Nitrogen 32H, Creatinine 0.88, Estimat Glomerular Filtration Rate > 60, BUN /Creatinine Ratio 36, Glucose Level 142H, Calcium Level 8.8, Corrected Calcium 9.7, Total Bilirubin 0.4, Aspartate Amino Transf (AST/SGOT) 22, Alanine Aminotransferase (ALT/SGPT) 18, Alkaline Phosphatase 115, Total Protein 7.1, Albumin 2.9L Assessment/Plan Assessment/Plan Assess & Plan/Chief Complaint Left parotiditis. Left. Alzheimer's. Atrial fibrillation. Clinical Quality Measures Admission Status Admission Dx Left facial abscess. Left parotiditis. Atrial fibrillation. Alzheimer's disease DVT/VTE Risk/Contraindication: Risk Factor Score Per Nursin RFS Level Per Nursing on Admit: 4+=Very High Contraindications-Pharm: Other *list below* VIRGINIA BRUCE DO Jun 09, 2018 08:00
[2018-06-09] MEDS: CLINDAMYCIN 900 MG/50 ML IVPB 50 ML IV SCH ×2 (08:39→17:17)
[2018-06-09] MEDS ORDERED: LACT20SO2 PO (10:29)
[2018-06-09] MEDS ORDERED: QUET50TA PO (10:29)
[2018-06-09] MEDS ORDERED: MAGN400O7 PO (10:29)
[2018-06-09] MEDS ORDERED: LOPE-134 PO (10:29)
[2018-06-09] MEDS ORDERED: APIX5TAB PO (10:29)
[2018-06-09] MEDS ORDERED: MELA5TAB14 PO (10:29)
[2018-06-09] MEDS ORDERED: OXYB5TAB9 PO (10:29)
[2018-06-09] MEDS ORDERED: DIVA-76 PO (10:29)
[2018-06-09] MEDS ORDERED: ACET325T38 PO (10:29)
[2018-06-09] MEDS ORDERED: NON-FORMULARY MEDICATION 1 EA EA (Melatonin 5 MG) PO PRN (17:30)
[2018-06-09] MEDS ORDERED: LOPERAMIDE 2 MG (IMODIUM) CAP PO PRN (17:30)
[2018-06-09] MEDS ORDERED: MILK OF MAGNESIA 400 MG/5 ML 30 ML UDC PO PRN (17:30)
[2018-06-09] MEDS ORDERED: ACETAMINOPHEN 325 MG TABLET PO PRN (17:30)
[2018-06-09] MEDS ORDERED: MELATONIN 3 MG TABLET PO PRN (18:00)
[2018-06-09] MEDS ORDERED: NON-FORMULARY MEDICATION 1 EA EA (Quetiapine Fumarate (Seroquel) 50 MG) PO SCH (21:00)
[2018-06-09] MEDS ORDERED: DIVALPROEX 500 MG DELAYED RELEASE (DEPAKOTE) TAB PO SCH (21:00)
[2018-06-09] MEDS ORDERED: GABAPENTIN 300 MG (NEURONTIN) CAP PO SCH (21:00)
[2018-06-09] MEDS ORDERED: NON-FORMULARY MEDICATION 1 EA EA (Famotidine 20 MG) PO SCH (21:00)
[2018-06-09] MEDS ORDERED: TERAZOSIN 5 MG (HYTRIN) CAPSULE PO SCH (21:00)
[2018-06-09] MEDS ORDERED: NON-FORMULARY MEDICATION 1 EA EA (Terazosin HCl 5 MG) PO SCH (21:00)
[2018-06-09] MEDS ORDERED: NON-FORMULARY MEDICATION 1 EA EA (Lactulose 30 ML) PO SCH (21:00)
[2018-06-09] MEDS ORDERED: NON-FORMULARY MEDICATION 1 EA EA (Oxybutynin Chloride 5 MG) PO SCH (21:00)
[2018-06-09] MEDS: OXYBUTYNIN (DITROPAN) 5 MG TAB PO SCH (21:32)
[2018-06-09] MEDS: QUEtiapine 25 MG (SEROquel) TAB IMMEDIATE RELEASE PO SCH (21:32)
[2018-06-09] MEDS: LACTULOSE SYRUP 10GM/15ML (ENULOSE) 30ML UDC PO SCH (21:32)
[2018-06-09] MEDS: FAMOTIDINE 20 MG (PEPCID) TABLET PO SCH (21:32)
[2018-06-10] MEDS: CLINDAMYCIN 900 MG/50 ML IVPB 50 ML IV SCH ×3 (00:01→16:02)
[2018-06-10] MEDS: DEXAMETHASONE 10 MG/ML (DECADRON) 1 ML VIAL IV SCH ×2 (03:07→11:15)
[2018-06-10 04:08] VITALS: BP 131/72
[2018-06-10] MEDS: NS IV 1000 ML 1,000 ML IV SCH (05:45)
[2018-06-10 06:07] LABS: HEMOGLOBIN 10.9 G/DL (13.3-17.7); MEAN PLATELET VOLUME 9.2 FL (7.4-10.4); RED BLOOD COUNT 3.46 10^6/uL (4.35-5.85); RED CELL DISTRIBUTION WIDTH 12.7 % (10.0-14.5); WHITE BLOOD COUNT 10.3 10^3/uL (4.3-11.0)
[2018-06-10 06:26] LABS: BUN/CREATININE RATIO 44; CALCIUM 8.8 MG/DL (8.5-10.1); CARBON DIOXIDE 22 MMOL/L (21-32); CHLORIDE 114 MMOL/L (98-107); CREATININE SERUM 0.81 MG/DL (0.60-1.30); GFR ESTIMATED > 60; GLUCOSE 139 MG/DL (70-105); POTASSIUM 3.9 MMOL/L (3.6-5.0); SODIUM 145 MMOL/L (135-145)
[2018-06-10 07:13] VITALS: BP 131/61
--- NOTE | 2018-06-10 08:06 | Progress Note (SOAP) ---
Subjective Time Seen by a Provider: 08:03 Subjective/Events-last exam Patient resting comfortably. Patient has dementia and unable to give history. Abscess today feels smaller. Carotid on left enlargement. The right. Patient atrial fib. Objective Exam Vital Signs Date Time Temp Pulse Resp B/P (MAP) Pulse Ox O2 Delivery O2 Flow Rate FiO2 06/10/18 07:13 97.8 65 18 131/61 (84) 95 Room Air 06/10/18 04:08 97.9 63 16 131/72 (91) 98 Room Air 06/09/18 23:43 98.6 82 18 144/64 (90) 95 Room Air 06/09/18 20:00 Room Air 06/09/18 19:54 98.1 75 16 111/68 (82) 95 Room Air 06/09/18 15:35 98.0 66 16 118/59 (78) 91 Room Air 06/09/18 12:00 98.1 90 18 130/68 (88) 93 Room Air I & O 06/10/18 07:00 Intake Total 3830 ml Balance 3830 ml Capillary Refill : Less Than 3 Seconds General Appearance: No Apparent Distress, WD/WN HEENT: Other (Enlarged left parotid, abscess better) Neck: Normal Inspection, Non Tender Respiratory: Lungs Clear, No Accessory Muscle Use, No Respiratory Distress Cardiovascular: Irregularly Irregular Gastrointestinal: non tender, soft Results Lab Laboratory Tests 06/10/18 05:55 Laboratory Tests 06/10/18 05:55: White Blood Count 10.3, Red Blood Count 3.46L, Hemoglobin 10.9L, Hematocrit 34L , Mean Corpuscular Volume 98, Mean Corpuscular Hemoglobin 32, Mean Corpuscular Hemoglobin Concent 32, Red Cell Distribution Width 12.7, Platelet Count 171, Mean Platelet Volume 9.2, Sodium Level 145, Potassium Level 3.9, Chloride Level 114H, Carbon Dioxide Level 22, Anion Gap 9, Blood Urea Nitrogen 36H, Creatinine 0.81, Estimat Glomerular Filtration Rate > 60, BUN/Creatinine Ratio 44, Glucose Level 139H, Calcium Level 8.8 Assessment/Plan Assessment/Plan Assess & Plan/Chief Complaint Left parotiditis. Left. Alzheimer's. Atrial fibrillation. . 06/10/18. Left parotid enlarged. Left abscess smaller. Alzheimer's. Atrial fibrillation. Clinical Quality Measures Admission Status Admission Dx Left facial abscess. Left parotiditis. Atrial fibrillation. Alzheimer's disease DVT/VTE Risk/Contraindication: Risk Factor Score Per Nursin RFS Level Per Nursing on Admit: 4+=Very High Contraindications-Pharm: Other *list below* VIRGINIA BRUCE DO Jun 10, 2018 08:06
--- NOTE | 2018-06-10 08:43 | Progress Note-Standard ---
Standard Progress Note Progress Notes/Assess & Plan Date Seen by a Provider: Jun 10, 2018 Time Seen by a Provider: 08:30 Progress/Assessment & Plan ENT-Alex finally got access back to computer patient better overall-agree with ultrasound to see if ther eis stil la fluid colloection-if so will need ultrasound guided drainage face-swellng better -did not complain of pain on plaption today will await results of us -if better could go home with 10 day course of clecin to treat Final Diagnosis left parotitis LESLI CRAWFORD MD Jun 10, 2018 08:43
[2018-06-10] MEDS ORDERED: FUROSEMIDE 20 MG (LASIX) TAB PO SCH (09:00)
[2018-06-10] MEDS ORDERED: amLODIPine 5 MG (NORVASC) TAB PO SCH (09:00)
[2018-06-10] MEDS ORDERED: NON-FORMULARY MEDICATION 1 EA EA (Amlodipine Besylate 5 MG) PO SCH (09:00)
--- NOTE | 2018-06-10 11:22 | Diagnostic Imaging Report ---
INDICATION: Left parotid swelling. Study is performed to evaluate for abscess. FINDINGS: Sonographic interrogation of the area swelling of the left parotid was performed. No fluid collection or abscess is identified. No sonographic abnormality is seen. IMPRESSION: No abscess is identified. Dictated by: Dictated on workstation # [id number]
[2018-06-10] MEDS ORDERED: CLIN300C3 PO (11:46)
[2018-06-10 12:00] VITALS: BP 135/75
[2018-06-10] MEDS: QUEtiapine 25 MG (SEROquel) TAB IMMEDIATE RELEASE PO SCH (12:06)
[2018-06-10] MEDS: OXYBUTYNIN (DITROPAN) 5 MG TAB PO SCH ×2 (12:07→12:35)
[2018-06-10] MEDS: LACTULOSE SYRUP 10GM/15ML (ENULOSE) 30ML UDC PO SCH (12:07)
[2018-06-10] MEDS: FAMOTIDINE 20 MG (PEPCID) TABLET PO SCH (12:07)
[2018-06-10 16:05] VITALS: BP 135/75
--- NOTE | 2018-06-11 07:52 | Discharge Summary ---
Diagnosis/Chief Complaint Date of Admission Jun 08, 2018 at 17:01 Date of Discharge Jun 10, 2018 at 16:05 Discharge Date: Jun 10, 2018 Discharge Time: 07:49 Discharge Diagnosis Cellulitis and abscess of mouth. Left parotiditis Alzheimer's disease. GERD. Atrial fibrillation Reason Hospital Visit Patient is resident of a skilled nursing. Left side of his face swollen. X-ray done on January was negative. Patient sent out to the emergency room today. CT shows left abscess and left parotid inflamed. 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 Left ear cancer. Prostate cancer. Patient's father of malignant brain tumor Discharge Summary Consultations ENT Discharge Physical Examination Allergies: Coded Allergies: No Allergy Information Available (Unverified , 05/03/18) Vitals & I&Os Vital Signs Date Time Temp Pulse Resp B/P (MAP) Pulse Ox O2 Delivery O2 Flow Rate FiO2 06/10/18 16:05 64 18 135/75 98 Room Air 06/10/18 12:00 96.9 Hospital Course Sepsis went away by self. Labs (last 24 hrs) Laboratory Tests 06/08/18 15:15: White Blood Count 9.9, Red Blood Count 4.24L, Hemoglobin 13.3, Hematocrit 41, Mean Corpuscular Volume 97, Mean Corpuscular Hemoglobin 31, Mean Corpuscular Hemoglobin Concent 32, Red Cell Distribution Width 13.1, Platelet Count 173, Mean Platelet Volume 9.4, Neutrophils (%) (Auto) 75, Lymphocytes (%) (Auto) 13, Monocytes (%) (Auto) 10, Eosinophils (%) (Auto) 2, Basophils (%) (Auto) 0, Neutrophils # (Auto) 7.4, Lymphocytes # (Auto) 1.3, Monocytes # (Auto) 1.0, Eosinophils # (Auto) 0.2, Basophils # (Auto) 0.0, Sodium Level 140, Potassium Level 5.8H, Chloride Level 104, Carbon Dioxide Level 26, Anion Gap 10, Blood Urea Nitrogen 31H, Creatinine 1.26, Estimat Glomerular Filtration Rate 54, BUN/ Creatinine Ratio 25, Glucose Level 164H, Calcium Level 9.4 06/09/18 04:08: White Blood Count 6.6, Red Blood Count 3.56L, Hemoglobin 11.3L, Hematocrit 35L, Mean Corpuscular Volume 97, Mean Corpuscular Hemoglobin 32, Mean Corpuscular Hemoglobin Concent 33, Red Cell Distribution Width 12.6, Platelet Count 161, Mean Platelet Volume 9.0, Neutrophils (%) (Auto) 86H, Lymphocytes (%) (Auto) 12 , Monocytes (%) (Auto) 2, Eosinophils (%) (Auto) 0, Basophils (%) (Auto) 0, Neutrophils # (Auto) 5.7, Lymphocytes # (Auto) 0.8L, Monocytes # (Auto) 0.1, Eosinophils # (Auto) 0.0, Basophils # (Auto) 0.0, Sodium Level 143, Potassium Level 4.1, Chloride Level 110H, Carbon Dioxide Level 23, Anion Gap 10, Blood Urea Nitrogen 32H, Creatinine 0.88, Estimat Glomerular Filtration Rate > 60, BUN /Creatinine Ratio 36, Glucose Level 142H, Calcium Level 8.8, Corrected Calcium 9.7, Total Bilirubin 0.4, Aspartate Amino Transf (AST/SGOT) 22, Alanine Aminotransferase (ALT/SGPT) 18, Alkaline Phosphatase 115, Total Protein 7.1, Albumin 2.9L 06/10/18 05:55: White Blood Count 10.3, Red Blood Count 3.46L, Hemoglobin 10.9L, Hematocrit 34L , Mean Corpuscular Volume 98, Mean Corpuscular Hemoglobin 32, Mean Corpuscular Hemoglobin Concent 32, Red Cell Distribution Width 12.7, Platelet Count 171, Mean Platelet Volume 9.2, Sodium Level 145, Potassium Level 3.9, Chloride Level 114H, Carbon Dioxide Level 22, Anion Gap 9, Blood Urea Nitrogen 36H, Creatinine 0.81, Estimat Glomerular Filtration Rate > 60, BUN/Creatinine Ratio 44, Glucose Level 139H, Calcium Level 8.8 Laboratory Tests 06/08/18 15:15 06/09/18 04:08 06/10/18 05:55 Pending Labs Laboratory Tests 06/08/18 15:15: White Blood Count 9.9, Red Blood Count 4.24, Hemoglobin 13.3, Hematocrit 41, Mean Corpuscular Volume 97, Mean Corpuscular Hemoglobin 31, Mean Corpuscular Hemoglobin Concent 32, Red Cell Distribution Width 13.1, Platelet Count 173, Mean Platelet Volume 9.4, Neutrophils (%) (Auto) 75, Lymphocytes (%) (Auto) 13, Monocytes (%) (Auto) 10, Eosinophils (%) (Auto) 2, Basophils (%) (Auto) 0, Neutrophils # (Auto) 7.4, Lymphocytes # (Auto) 1.3, Monocytes # (Auto) 1.0, Eosinophils # (Auto) 0.2, Basophils # (Auto) 0.0, Sodium Level 140, Potassium Level 5.8, Chloride Level 104, Carbon Dioxide Level 26, Anion Gap 10, Blood Urea Nitrogen 31, Creatinine 1.26, Estimat Glomerular Filtration Rate 54, BUN/ Creatinine Ratio 25, Glucose Level 164, Calcium Level 9.4 06/09/18 04:08: White Blood Count 6.6, Red Blood Count 3.56, Hemoglobin 11.3, Hematocrit 35, Mean Corpuscular Volume 97, Mean Corpuscular Hemoglobin 32, Mean Corpuscular Hemoglobin Concent 33, Red Cell Distribution Width 12.6, Platelet Count 161, Mean Platelet Volume 9.0, Neutrophils (%) (Auto) 86, Lymphocytes (%) (Auto) 12, Monocytes (%) (Auto) 2, Eosinophils (%) (Auto) 0, Basophils (%) (Auto) 0, Neutrophils # (Auto) 5.7, Lymphocytes # (Auto) 0.8, Monocytes # (Auto) 0.1, Eosinophils # (Auto) 0.0, Basophils # (Auto) 0.0, Sodium Level 143, Potassium Level 4.1, Chloride Level 110, Carbon Dioxide Level 23, Anion Gap 10, Blood Urea Nitrogen 32, Creatinine 0.88, Estimat Glomerular Filtration Rate > 60, BUN/ Creatinine Ratio 36, Glucose Level 142, Calcium Level 8.8, Corrected Calcium 9.7 , Total Bilirubin 0.4, Aspartate Amino Transf (AST/SGOT) 22, Alanine Aminotransferase (ALT/SGPT) 18, Alkaline Phosphatase 115, Total Protein 7.1, Albumin 2.9 06/10/18 05:55: White Blood Count 10.3, Red Blood Count 3.46, Hemoglobin 10.9, Hematocrit 34, Mean Corpuscular Volume 98, Mean Corpuscular Hemoglobin 32, Mean Corpuscular Hemoglobin Concent 32, Red Cell Distribution Width 12.7, Platelet Count 171, Mean Platelet Volume 9.2, Sodium Level 145, Potassium Level 3.9, Chloride Level 114, Carbon Dioxide Level 22, Anion Gap 9, Blood Urea Nitrogen 36, Creatinine 0.81, Estimat Glomerular Filtration Rate > 60, BUN/Creatinine Ratio 44, Glucose Level 139, Calcium Level 8.8 Discussion & Recommendations Patient transferred back to skilled nursing. Patient put on antibiotic. Discharge Home Medications: Active Scripts Active Cleocin HCl (Clindamycin HCl) 300 Mg Capsule 300 Mg PO TID 10 Days Reported Milk of Magnesia (Magnesium Hydroxide) 400 Mg/5 Ml Oral.susp 30 Ml PO Q12H PRN Melatonin 5 Mg Tablet 5 Mg PO DAILY PRN Tylenol (Acetaminophen) 325 Mg Tablet 650 Mg PO Q4H PRN Oxybutynin Chloride 5 Mg Tablet 5 Mg PO TID Seroquel (Quetiapine Fumarate) 50 Mg Tablet 50 Mg PO BID Lactulose 20 Gm/30 Ml Solution 30 Ml PO BID Eliquis (Apixaban) 5 Mg Tablet 5 Mg PO BID Imodium A-D (Loperamide HCl) 2 Mg Tablet PO UD PRN 2 TABS AFTER 1ST LOOSE STOOL, THEN 1 TAB AFTER EACH SUBSEQUENT LOOSE STOOL NTE 6 TABS IN 24 HOURS Divalproex Sodium 500 Mg Tablet.dr 500 Mg PO HS Terazosin HCl 5 Mg Capsule 5 Mg PO HS Gabapentin 300 Mg Capsule 300 Mg PO HS Furosemide 20 Mg Tablet 20 Mg PO DAILY Famotidine 20 Mg Tablet 20 Mg PO BID Amlodipine Besylate 5 Mg Tablet 5 Mg PO DAILY Instructions to patient/family Please see electronic discharge instructions given to patient. Clinical Quality Measures DVT/VTE Risk/Contraindication: Risk Factor Score Per Nursin RFS Level Per Nursing on Admit: 4+=Very High Contraindications-Pharm: Other *list below* VIRGINIA BRUCE DO Jun 11, 2018 07:52
== END 2018-06-10 16:05 | DRG 155 ==
LOC: ER 15:00 → EDUNIT# 15:00 → 4TH 17:01
PROVIDERS: ADMIT Family Medicine; ATTEND Family Medicine
DX: K11.21 Acute sialoadenitis (principal); K12.2 Cellulitis and abscess of mouth; I48.92 Unspecified atrial flutter; I48.91 Unspecified atrial fibrillation; I13.0 Hypertensive heart and chronic kidney disease with heart failure and stage 1 through stage 4 chronic kidney disease, or unspecified chronic kidney disease; N18.9 Chronic kidney disease, unspecified; I50.9 Heart failure, unspecified; Z66 Do not resuscitate; F01.51 Vascular dementia, unspecified severity, with behavioral disturbance; G30.9 Alzheimer's disease, unspecified; E78.00 Pure hypercholesterolemia, unspecified; N40.0 Benign prostatic hyperplasia without lower urinary tract symptoms; K21.9 Gastro-esophageal reflux disease without esophagitis; R13.10 Dysphagia, unspecified; R26.9 Unspecified abnormalities of gait and mobility; R53.1 Weakness; F32.9 Major depressive disorder, single episode, unspecified; F29 Unspecified psychosis not due to a substance or known physiological condition; Z95.2 Presence of prosthetic heart valve
CPT/HCPCS: 36415; 70487; 76536; 80048; 80053; 85025; 85027; 96361; 96365

== ENCOUNTER 2018-07-27 17:40 | Inpatient (IN) | payer MEDICARE, MEDICAID ==
[~2018-07-27] VITALS: Ht 182.9 cm; Wt 78.9 kg
[~2018-07-27 17:40] MED LIST changes: +ACET325T38 PO; -AMLO5TAB7 PO; +AMLO5TAB9 PO; +APIX5TAB PO; +CLIN300C3 PO; +DIVA-76 PO; +LACT20SO2 PO; +LOPE-134 PO; +MAGN400O7 PO; +MELA5TAB14 PO; +OXYB5TAB9 PO; +QUET50TA PO
--- NOTE | 2018-07-27 17:55 | ED Fall/Injury ---
General Chief Complaint: Trauma-Non Activation Stated Complaint: FALL Nursing Triage Note: ARRIVED VIA EMS FROM [facility] AFTER A WITNESS FALL. PT WAS TRIPPED OVER HIS PANTS LANDING ON RIGHT HIP. DID NOT HIT HIS HEAD. PT HAS DEMENTIA AND IS PLEASENTLY CONFUSED NORMALLY Source: patient Exam Limitations: no limitations History of Present Illness Date Seen by Provider: Jul 27, 2018 Time Seen by Provider: 17:52 Initial Comments ER per EMS from [facility] with reports of a fall. This was a witnessed fall apparently and he fell because he was walking with his pants around his knees.. Complains of right hip pain and keeps the hip in a flexed position. He is demented and is not able to contribute to history of present illness or review of systems. He is a DO NOT RESUSCITATE status. He is on Eliquis. Occurred: just prior to arrival Severity: moderate Injuries/Pain Location: lower extremity Associated Symptoms (Fall): No Neck Pain Allergies and Home Medications Allergies Coded Allergies: clindamycin (Verified Allergy, Unknown, 07/27/18) Home Medications Acetaminophen 325 Mg Tablet, 650 MG PO Q4H PRN for PAIN-MILD OR TEMPATURE, ( Reported) Amlodipine Besylate 5 Mg Tablet, 5 MG PO DAILY, (Reported) Apixaban 5 Mg Tablet, 5 MG PO BID, (Reported) Clindamycin HCl 300 Mg Capsule, 300 MG PO TID Prescribed by: DANILO BORJA on 06/10/18 1146 Divalproex Sodium 500 Mg Tablet.dr, 500 MG PO HS, (Reported) Famotidine 20 Mg Tablet, 20 MG PO BID, (Reported) Furosemide 20 Mg Tablet, 20 MG PO DAILY, (Reported) Gabapentin 300 Mg Capsule, 300 MG PO HS, (Reported) Lactulose 20 Gm/30 Ml Solution, 30 ML PO BID, (Reported) Loperamide HCl 2 Mg Tablet, PO UD PRN for DIARRHEA, (Reported) 2 TABS AFTER 1ST LOOSE STOOL, THEN 1 TAB AFTER EACH SUBSEQUENT LOOSE STOOL NTE 6 TABS IN 24 HOURS Magnesium Hydroxide 400 Mg/5 Ml Oral.susp, 30 ML PO Q12H PRN for CONSTIPATION- 7TH LINE, (Reported) Melatonin 5 Mg Tablet, 5 MG PO DAILY PRN for INSOMNIA, (Reported) Oxybutynin Chloride 5 Mg Tablet, 5 MG PO TID, (Reported) Quetiapine Fumarate 50 Mg Tablet, 50 MG PO BID, (Reported) Terazosin HCl 5 Mg Capsule, 5 MG PO HS, (Reported) Patient Home Medication List Home Medication List Reviewed: Yes Review of Systems Review of Systems Constitutional: see HPI, other (unable to obtain due to dementia) Past Zydxicc-Cuikgy-Sqtotk Hx Patient Social History 2nd Hand Smoke Exposure: No Recent Foreign Travel: No Contact w/Someone Who Travel: No Recent Infectious Disease Expo: No Immunizations Up To Date Tetanus Booster (TDap): Unknown Date of Pneumonia Vaccine: Jun 06, 2016 Date of Influenza Vaccine: Mar 09, 2018 Past Medical History Surgeries: Yes Respiratory: No Cardiac: Yes (ATRIAL FLUTTER; CHF) Atrial Fibrillation, High Cholesterol, Hypertension 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) Dementia Sexually Transmitted Disease: No Genitourinary: Yes (chronic kidney disease) Benign Prostatic Hyperpl, Renal Failure Gastrointestinal: Yes (DYSPNAGIA) Gastroesophageal Reflux Musculoskeletal: Yes (GENERALIZED WEAKNESS, GAIT DISTURBANCE) HEENT: Yes Dysphagia Psychosocial: Yes (psychotic disorder w/delusions; AGITATION AND RESTLESSNESS) Depression Integumentary: No Blood Disorders: No Adverse Reaction/Blood Tranf: No Family Medical History Alzheimer's disease Cardiovascular disease Completed stroke Dementia Hypertension Visual disorder Physical Exam Vital Signs Vital Signs - First Documented 07/27/18 17:44 Temp 97.6 Pulse 79 Resp 16 B/P (MAP) 130/100 (110) Pulse Ox 95 O2 Delivery Room Air Capillary Refill : Less Than 3 Seconds Height, Weight, BMI Height: 6'0.00" Weight: 140lbs. 5.0oz. [id number]; 23.7 BMI Method:Estimated General Appearance: WD/WN, no apparent distress, thin, other (frail) HEENT: PERRL/EOMI, normal ENT inspection Neck: non-tender, full range of motion Cardiovascular: regular rate, rhythm, no edema Respiratory: normal breath sounds, no respiratory distress, no accessory muscle use Gastrointestinal: normal bowel sounds, soft Extremities: no calf tenderness, other (keeps the right hip in a flexed position. He has a strong dorsalis pedis pulse bilaterally.) Neurologic/Psychiatric: alert, normal mood/affect, oriented x 3 Skin: normal color, warm/dry Brett Coma Score Best Eye Response: (4) Open Spontaneously Best Verbal Response: (5) Oriented Best Motor Response: (6) Obeys Commands Brett Total: 15 Progress/Results/Core Measures Results/Orders Lab Results Laboratory Tests Test 07/27/18 17:45 07/27/18 18:00 Range/Units White Blood Count 4.5 4.3-11.0 10^3/uL Red Blood Count 4.44 4.35-5.85 10^6/uL Hemoglobin 14.0 13.3-17.7 G/DL Hematocrit 43 40-54 % Mean Corpuscular Volume 97 80-99 FL Mean Corpuscular Hemoglobin 32 25-34 PG Mean Corpuscular Hemoglobin Concent 33 32-36 G/DL Red Cell Distribution Width 13.4 10.0-14.5 % Platelet Count 137 130-400 10^3/uL Mean Platelet Volume 10.1 7.4-10.4 FL Neutrophils (%) (Auto) 51 42-75 % Lymphocytes (%) (Auto) 37 12-44 % Monocytes (%) (Auto) 8 0-12 % Eosinophils (%) (Auto) 4 0-10 % Basophils (%) (Auto) 0 0-10 % Neutrophils # (Auto) 2.3 1.8-7.8 X 10^3 Lymphocytes # (Auto) 1.7 1.0-4.0 X 10^3 Monocytes # (Auto) 0.4 0.0-1.0 X 10^3 Eosinophils # (Auto) 0.2 0.0-0.3 10^3/uL Basophils # (Auto) 0.0 0.0-0.1 10^3/uL Prothrombin Time 13.8 12.2-14.7 SEC INR Comment 1.1 0.8-1.4 Sodium Level 138 135-145 MMOL/L Potassium Level 4.2 3.6-5.0 MMOL/L Chloride Level 104 98-107 MMOL/L Carbon Dioxide Level 24 21-32 MMOL/L Anion Gap 10 5-14 MMOL/L Blood Urea Nitrogen 32 H 7-18 MG/DL Creatinine 1.11 0.60-1.30 MG/DL Estimat Glomerular Filtration Rate > 60 BUN/Creatinine Ratio 29 Glucose Level 129 H 70-105 MG/DL Calcium Level 9.1 8.5-10.1 MG/DL Corrected Calcium 9.5 8.5-10.1 MG/DL Total Bilirubin 0.5 0.1-1.0 MG/DL Aspartate Amino Transf (AST/SGOT) 30 5-34 U/L Alanine Aminotransferase (ALT/SGPT) 25 0-55 U/L Alkaline Phosphatase 103 40-136 U/L Total Protein 7.6 6.4-8.2 GM/DL Albumin 3.5 3.2-4.5 GM/DL Urine Color YELLOW Urine Clarity SLIGHTLY CLOUDY Urine pH 7 5-9 Urine Specific Stanley 1.015 L 1.016-1.022 Urine Protein NEGATIVE NEGATIVE Urine Glucose (UA) NEGATIVE NEGATIVE Urine Ketones NEGATIVE NEGATIVE Urine Nitrite NEGATIVE NEGATIVE Urine Bilirubin NEGATIVE NEGATIVE Urine Urobilinogen 1 NORMAL MG/DL Urine Leukocyte Esterase NEGATIVE NEGATIVE Urine RBC (Auto) NEGATIVE NEGATIVE Urine RBC NONE /HPF Urine WBC NONE /HPF Urine Crystals NONE /LPF Urine Bacteria NEGATIVE /HPF Urine Casts NONE /LPF Urine Mucus NEGATIVE /LPF Urine Culture Indicated NO My Orders Orders - JUAN ANTONIO BOOTH APRN Cbc With Automated Diff (07/27/18 17:48) Comprehensive Metabolic Panel (07/27/18 17:48) Ua Culture If Indicated (07/27/18 17:48) Pelvis With Right Hip 2-3views (07/27/18 17:48) Chest 1 View, Ap/Pa Only (07/27/18 17:48) Ct Head/Cervical Spine Wo (07/27/18 17:48) Protime With Inr (07/27/18 17:48) Fentanyl Injection (Sublimaze Injection (07/27/18 18:00) Fentanyl Injection (Sublimaze Injection (07/27/18 18:00) Medications Given in ED Current Medications Medications Dose Ordered Sig/Giovanna Route Start Time Stop Time Status Last Admin Dose Admin Fentanyl Citrate 25 mcg ONCE ONCE IVP 07/27/18 18:00 07/27/18 18:01 DC 07/27/18 17:54 25 MCG Vital Signs/I&O 07/27/18 17:44 Temp 97.6 Pulse 79 Resp 16 B/P (MAP) 130/100 (110) Pulse Ox 95 O2 Delivery Room Air Blood Pressure Mean: 110 Diagnostic Imaging Diagonstic Imaging: Xray Comments NAME: MATTHEW CURTIS [facility] REC#: [id number] PT STATUS: REG ER : 1930 PHYSICIAN: JUAN ANTONIO BOOTH FREELANCE MAKEUP ARTIST ADMIT DATE: 07/27/18/ER Draft Date of Exam:07/27/18 CHEST 1 VIEW, AP/PA ONLY INDICATION: Fall. Frontal chest obtained at 6:50 p.m. and is compared with 05/03/2018. FINDINGS: There is cardiomegaly and post-sternotomy change with prosthetic aortic valve. There is mild central vascular prominence which appears unchanged compared to the prior study. There is no acute edema, infiltrate, or pleural fluid. There is no overt bony abnormality in the chest. IMPRESSION: Cardiomegaly with evidence of aortic valve replacement with mild chronic central vascular prominence. No acute edema, infiltrate, pneumothorax, or pleural fluid. Dictated on workstation # [id number] Dict: 07/27/181844 Trans: 07/27/181848 [id number] Interpreted by: CHET ANN MD Electronically signed by: NAME: MTATHEW CURTIS [facility] REC#: [id number] PT STATUS: REG ER : 1930 PHYSICIAN: JUAN ANTONIO BOOTH APRN ADMIT DATE: 07/27/18/ER Draft Date of Exam:07/27/18 PELVIS WITH RIGHT HIP 2-3VIEWS INDICATION: Right hip injury and pain. COMPARISON: None. FINDINGS: Single view of the pelvis and two views of the right hip demonstrate nondisplaced right femoral neck fracture. There is a questionable fracture line extending into the intertrochanteric region. There is no dislocation. No osseous lesion. IMPRESSION: Nondisplaced right femoral neck fracture with questionable involvement of the intertrochanteric region of the right hip. Please note the examination is limited due to motion and positioning. Dictated on workstation # [id number] Dict: 07/27/181843 Trans: 07/27/181849 [id number] Interpreted by: RUI ESTRADA Electronically signed by: Departure Communication (Admissions) Time/Spoke to Admitting Phy: 19:12 I discussed the case with Dr. Cunha. We will make patient nothing by mouth after breakfast, CT of the hip tomorrow morning, pain control. Tentative plan for operative repair tomorrow afternoon Time/Spoke to Consulting Phy: 19:[address] Bruce. He agrees with the above plan. I notified the patient's power of bag machine helper Jess from [facility] and recommended that she come up here to be present in case she needs to sign. She states she will try to be here by noon. Also notified [facility] of the plan to admit. Impression Primary Impression: Closed right hip fracture Qualified Codes: S72.001A - Fracture of unspecified part of neck of right femur, initial encounter for closed fracture Disposition: ADMITTED INPATIENT Condition: Stable Admissions Decision to Admit Reason: Admit from ER (General) Decision to Admit/Date: Jul 27, 2018 Time/Decision to Admit Time: 18:52 Departure-Patient Inst. Referrals: VIRGINIA BRUCE DO (PCP/Family) Primary Care Physician JUAN ANTONIO BOOTH APRN Jul 27, 2018 17:55
[2018-07-27 17:56] LABS: BASOPHILS % (AUTO) 0 % (0-10); EOSINOPHILS # (AUTO) 0.2 10^3/uL (0.0-0.3); EOSINOPHILS % (AUTO) 4 % (0-10); HEMATOCRIT 43 % (40-54); LYMPHOCYTES # (AUTO) 1.7 X 10^3 (1.0-4.0); LYMPHOCYTES % (AUTO) 37 % (12-44); MEAN CORPUSCULAR HEMOGLOBIN 32 PG (25-34); MEAN CORPUSCULAR HGB CONC 33 G/DL (32-36); MEAN CORPUSCULAR VOLUME 97 FL (80-99); MEAN PLATELET VOLUME 10.1 FL (7.4-10.4); MONOCYTES # (AUTO) 0.4 X 10^3 (0.0-1.0); MONOCYTES % (AUTO) 8 % (0-12); NEUTROPHILS # (AUTO) 2.3 X 10^3 (1.8-7.8); NEUTROPHILS % (AUTO) 51 % (42-75); PLATELET COUNT 137 10^3/uL (130-400); RED BLOOD COUNT 4.44 10^6/uL (4.35-5.85); RED CELL DISTRIBUTION WIDTH 13.4 % (10.0-14.5); WHITE BLOOD COUNT 4.5 10^3/uL (4.3-11.0)
[2018-07-27] MEDS ORDERED: fentaNYL INJECTION 100 MCG/2 ML AMP IVP PRN (18:00)
[2018-07-27] MEDS ORDERED: fentaNYL INJECTION 100 MCG/2 ML AMP IVP ONE (18:00)
[2018-07-27 18:04] LABS: INR 1.1 (0.8-1.4); PROTHROMBIN TIME PATIENT 13.8 SEC (12.2-14.7)
[2018-07-27 18:07] LABS: BILIRUBIN,URINE NEGATIVE (NEGATIVE); CLARITY,URINE SLIGHTLY CLOUDY; COLOR,URINE YELLOW; GLUCOSE, URINE (UA) NEGATIVE (NEGATIVE); KETONES,URINE NEGATIVE (NEGATIVE); LEUKOCYTE ESTERASE ,URINE NEGATIVE (NEGATIVE); NITRITE,URINE NEGATIVE (NEGATIVE); PH,URINE 7 (5-9); PROTEIN,URINE NEGATIVE (NEGATIVE); UROBILINOGEN,URINE 1 MG/DL (NORMAL)
[2018-07-27 18:12] LABS: ALANINE AMINOTRANSFERASE 25 U/L (0-55); ALBUMIN 3.5 GM/DL (3.2-4.5); ALKALINE PHOSPHATASE 103 U/L (40-136); BILIRUBIN,TOTAL 0.5 MG/DL (0.1-1.0); BUN/CREATININE RATIO 29; CALCIUM 9.1 MG/DL (8.5-10.1); CARBON DIOXIDE 24 MMOL/L (21-32); CHLORIDE 104 MMOL/L (98-107); CREATININE SERUM 1.11 MG/DL (0.60-1.30); GFR ESTIMATED > 60; GLUCOSE 129 MG/DL (70-105); POTASSIUM 4.2 MMOL/L (3.6-5.0); SODIUM 138 MMOL/L (135-145); TOTAL PROTEIN 7.6 GM/DL (6.4-8.2)
[2018-07-27 18:16] LABS: BACTERIA,URINE NEGATIVE /HPF
--- NOTE | 2018-07-27 18:23 | Diagnostic Imaging Report ---
PROCEDURE: CT head and CT cervical spine without contrast. TECHNIQUE: Multiple contiguous axial images were obtained through the brain and cervical spine without the use of intravenous contrast. Sagittal and coronal reformations through the cervical spine were then performed. INDICATION: Fall. Head and neck pain. COMPARISON: CT head 05/03/2018 CT HEAD: Age-related cerebral volume loss and chronic small vessel ischemic changes are present. There is no midline shift or mass effect. There is no hemorrhage or evidence of acute ischemia. There was no extra-axial fluid collection. No skull fracture is seen. Paranasal sinuses and mastoids are clear. IMPRESSION: No acute intracranial abnormalities. CT CERVICAL SPINE: Alignment is normal. There is no subluxation or fracture. Moderate degenerative disc disease and facet joint arthropathy is seen. Advanced atherosclerosis is seen in the carotid bulbs bilaterally. IMPRESSION: 1. No traumatic malalignment o fracture. 2. Carotid atherosclerosis. Dictated by: Dictated on workstation # [id number]
--- NOTE | 2018-07-27 18:49 | Diagnostic Imaging Report ---
INDICATION: Fall. Frontal chest obtained at 6:50 p.m. and is compared with 05/03/2018. FINDINGS: There is cardiomegaly and post-sternotomy change with prosthetic aortic valve. There is mild central vascular prominence which appears unchanged compared to the prior study. There is no acute edema, infiltrate, or pleural fluid. There is no overt bony abnormality in the chest. IMPRESSION: Cardiomegaly with evidence of aortic valve replacement with mild chronic central vascular prominence. No acute edema, infiltrate, pneumothorax, or pleural fluid. Dictated by: Dictated on workstation # [id number]
--- NOTE | 2018-07-27 18:51 | Diagnostic Imaging Report ---
INDICATION: Right hip injury and pain. COMPARISON: None. FINDINGS: Single view of the pelvis and two views of the right hip demonstrate nondisplaced right femoral neck fracture. There is a questionable fracture line extending into the intertrochanteric region. There is no dislocation. No osseous lesion. IMPRESSION: Nondisplaced right femoral neck fracture with questionable involvement of the intertrochanteric region of the right hip. Please note the examination is limited due to motion and positioning. Dictated by: Dictated on workstation # [id number]
--- NOTE | 2018-07-27 18:57 | NUR ---
REPORT GIVEN TO BILL
--- NOTE | 2018-07-27 19:35 | NUR ---
[facility] NOTIFIED OF PT RIGHT HIP FRACTURE AND ADMISSION TO HOSPITAL FOR TENTATIVE ORIF OF RIGHT HIP TOMORROW BY Sterling BOOTH APRN.
--- NOTE | 2018-07-27 20:31 | NUR ---
KIRSTENMATTHEW Mallory admitted to room 432-1, with an admitting diagnosis of RIGHT HIP FX., on 07/27/18 from ED via CART, accompanied by STAFF.MATTHEW CURTIS introduced to surroundings, call light, bed controls, phone, TV, temperature control, lights, meal times, smoking policy, visitor policy, side rail policy, bathrooms and showers. Patient Rights given to patient in the handbook. MATTHEW CURTIS verbalizes understanding that [facility] is not responsible for the loss or damage to any personal effects or valuables that are kept in the patients posession during their hospitalization.
[2018-07-27 20:40] VITALS: BP 97/64
[2018-07-27] MEDS ORDERED: CATHETER FLUSH 10 ML SYR IV PRN (21:30)
[2018-07-27] MEDS: NS IV 1000 ML 1,000 ML IV SCH (21:54)
[2018-07-27] MEDS: fentaNYL INJECTION 100 MCG/2 ML AMP IV PRN (21:55)
[2018-07-27] MEDS: CATHETER FLUSH 10 ML SYR IV SCH (21:55)
[2018-07-27 23:37] VITALS: BP 96/60
[2018-07-28] MEDS: HYDROcodone/APAP 5 MG/325 MG (LORTAB) TAB PO SCH ×4 (00:15→19:32)
[2018-07-28] MEDS: fentaNYL INJECTION 100 MCG/2 ML AMP IV PRN (01:39)
[2018-07-28 03:49] VITALS: BP 116/69
[2018-07-28] MEDS: CATHETER FLUSH 10 ML SYR IV SCH ×3 (05:16→20:13)
[2018-07-28] MEDS: NS IV 1000 ML 1,000 ML IV SCH ×2 (07:48→19:40)
[2018-07-28] MEDS: DOCUSATE SODIUM 100 MG (COLACE) CAP PO SCH ×2 (07:49→21:20)
[2018-07-28 08:00] VITALS: BP 140/64
[2018-07-28] MEDS ORDERED: NYST1POW22 TOP (08:25)
--- NOTE | 2018-07-28 08:31 | History & Physicial ---
History of Present Illness History of Present Illness Reason for visit/HPI Patient [facility] [place] [facility] [place]. Patient fell over this a.m.'s and landed on his right hip. Right hip was hurting. Patient has dementia. 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 Patient transferred to emergency room with patient had a nondisplaced right femoral neck fracture Patient unable to give any history Date of Admission Jul 27, 2018 at 19:06 Time Seen by a Provider: 08:27 I consulted on this patient on 07/28/18 08:26 Attending Physician Gene Bruce DO Admitting Physician Gene Bruce DO Consult Allergies and Home Medications Allergies Coded Allergies: clindamycin (Verified Allergy, Unknown, 07/27/18) Home Medications Acetaminophen 325 Mg Tablet, 650 MG PO Q4H PRN for PAIN-MILD OR TEMPATURE, ( Reported) Amlodipine Besylate 5 Mg Tablet, 5 MG PO DAILY, (Reported) HOLD FOR BP LESS THAN 100/60 AND PULSE LESS THAN 60 Apixaban 5 Mg Tablet, 5 MG PO BID, (Reported) Divalproex Sodium 500 Mg Tablet.dr, 500 MG PO HS, (Reported) Famotidine 20 Mg Tablet, 20 MG PO BID, (Reported) Furosemide 20 Mg Tablet, 20 MG PO DAILY, (Reported) Gabapentin 300 Mg Capsule, 300 MG PO HS, (Reported) Lactulose 20 Gm/30 Ml Solution, 30 ML PO BID, (Reported) Loperamide HCl 2 Mg Tablet, PO UD PRN for DIARRHEA, (Reported) 2 TABS AFTER 1ST LOOSE STOOL, THEN 1 TAB AFTER EACH SUBSEQUENT LOOSE STOOL NTE 6 TABS IN 24 HOURS Magnesium Hydroxide 400 Mg/5 Ml Oral.susp, 30 ML PO Q12H PRN for CONSTIPATION- 7TH LINE, (Reported) Melatonin 5 Mg Tablet, 5 MG PO HS PRN for INSOMNIA, (Reported) Nystatin 1 Each Powder.ea., TOP BID, (Reported) APPLY TO BILATERAL GROIN AREA EVERY SHIFT, CAN BE MADE PRN AFTER INITAL AREA IS CLEAR Oxybutynin Chloride 5 Mg Tablet, 5 MG PO TID, (Reported) Quetiapine Fumarate 50 Mg Tablet, 50 MG PO BID, (Reported) Terazosin HCl 5 Mg Capsule, 5 MG PO HS, (Reported) HOLD FOR BP LESS THAN 100/60 AND PULSE LESS THAN 60 Patient Home Medication List Home Medication List Reviewed: Yes Past Lfqheym-Uviwwh-Ulfcmv Hx Patient Social History Alcohol Use: Denies Use Recreational Drug Use: No 2nd Hand Smoke Exposure: No Physical Abuse Screen: No Sexual Abuse: No Recent Foreign Travel: No Contact w/other who traveled: No Recent Hopitalizations: No Recent Infectious Disease Expo: No Immunizations Up To Date Tetanus Booster (TDap): Unknown Date of Pneumonia Vaccine: Jun 06, 2016 Date of Influenza Vaccine: Mar 09, 2018 Seasonal Allergies Seasonal Allergies: No Surgeries Yes Respiratory No Cardiovascular Yes (ATRIAL FLUTTER; CHF) Atrial Fibrillation, High Cholesterol, Hypertension Neurological Yes (VASCULAR DEMENTIA WITH BEHAVIOR DISTURBANCE) Dementia Reproductive System Sexually Transmitted Disease: No Genitourinary Yes (chronic kidney disease) Benign Prostatic Hyperpl, Renal Failure Gastrointestinal Yes (DYSPNAGIA) Gastroesophageal Reflux Musculoskeletal Yes (GENERALIZED WEAKNESS, GAIT DISTURBANCE) Endocrine History of Endocrine Disorders: No HEENT History of HEENT Disorders: Yes HEENT Disorders: Dysphagia Psychosocial History of Psychiatric Problem: Yes (psychotic disorder w/delusions; AGITATION AND RESTLESSNESS) Behavioral Health Disorders: Depression Integumentary History of Skin or Integumenta: No Blood Transfusions History of Blood Disorders: No Adverse Reaction to a Blood Tr: No Family Medical History Family Hx: Alzheimer's disease Cardiovascular disease Completed stroke Dementia Hypertension Visual disorder Review of Systems Constitutional: no symptoms reported EENTM: no symptoms reported Respiratory: no symptoms reported Cardiovascular: no symptoms reported Gastrointestinal: no symptoms reported Genitourinary: no symptoms reported Physical Exam Vital Signs Vital Signs - First Documented 07/27/18 07/27/18 17:44 22:20 Temp 97.6 Pulse 79 Resp 16 B/P (MAP) 130/100 (110) Pulse Ox 95 O2 Delivery Room Air O2 Flow Rate 2.00 Capillary Refill : Less Than 3 SecondsLess Than 3 Seconds Height, Weight, BMI Height: 6'0.00" Weight: 174lbs. 0.0oz. 78.723053pi; 23.6 BMI Method:Estimated General Appearance: No Apparent Distress, WD/WN Eyes: Bilateral Eye Normal Inspection HEENT: Normal ENT Inspection Neck: Full Range of Motion, Normal Inspection, Non Tender Respiratory: No Accessory Muscle Use, No Respiratory Distress Cardiovascular: Regular Rate, Rhythm, No Murmur Gastrointestinal: Non Tender, Soft Assessment/Plan Assessment and Plan Right hip fracture. Dementia. Aortic valve replacement. Hypertension. CAD. Admission Diagnosis Admission Status: Inpatient Order (span 2 midnights) Reason for Inpatient Admission: Right hip fracture. Dementia. Patient needs surgery Clinical Quality Measures DVT/VTE Risk/Contraindication: Risk Factor Score Per Nursin RFS Level Per Nursing on Admit: 4+=Very High GENE BRUCE DO Jul 28, 2018 08:31
--- NOTE | 2018-07-28 10:39 | Diagnostic Imaging Report ---
PROCEDURE: CT pelvis without contrast. TECHNIQUE: Multiple contiguous axial images were obtained through the pelvis without the use of intravenous contrast. Sagittal and coronal reformations were performed. INDICATION: Further evaluation of right hip fracture. Comparison: Radiographs of 07/27/2018 Findings: There is an acute, mildly comminuted fracture involving the intertrochanteric region of the proximal right femur. One of the fracture lines results in complete separation of the posterior one half of the greater trochanter from the femoral neck and shaft. Conventional oblique fracture through the intertrochanteric region is also present. No fracture of the femoral neck. Femoral head remains spherical without osteonecrosis or fracture. There is an acute to subacute nondisplaced fracture involving the S3 vertebral body and posterior elements. No features of sacral alar insufficiency fracture. No fracture of the pubic rami on either side. Left proximal femur is intact. No free pelvic fluid. Urinary bladder is partially decompressed by a Beckwith catheter. Sigmoid colon diverticulosis. Atherosclerotic aorta and iliac arteries. Impression: 1. Acute, mildly comminuted intertrochanteric fracture of the proximal right femur. 2. Acute to subacute nondisplaced fracture of the S3 vertebral body and posterior element. Dictated by: Dictated on workstation # [id number]
[2018-07-28 12:00] VITALS: BP 156/66
[2018-07-28] MEDS ORDERED: fentaNYL INJECTION 100 MCG/2 ML AMP ONE (15:18)
[2018-07-28] MEDS ORDERED: DEXAMETHASONE 10 MG/ML (DECADRON) 1 ML VIAL ONE (15:18)
[2018-07-28] MEDS ORDERED: ONDANSETRON 4 MG/2 ML (SDV) Z0FRAN ONE ×2 (15:18→17:45)
[2018-07-28] MEDS ORDERED: LIDOCAINE PF 2% 5 ML (XYLOCAINE) VIAL ONE (15:18)
[2018-07-28] MEDS ORDERED: SEVOFLURANE (ULTANE) 15 ML INHAL SOLN ONE ×5 (15:18→17:50)
[2018-07-28] MEDS ORDERED: proPOfol 200 MG/20 ML (DIPRIVAN) VIAL IV ONE (15:18)
[2018-07-28] MEDS ORDERED: BUPIVACAINE 0.5% 30 ML (SENSORCAINE) VIAL ONE (15:22)
--- NOTE | 2018-07-28 16:19 | Occupational Therapy Eval ---
OT Evaluation-General/PLF Medical Diagnosis Admission Date Jul 27, 2018 at 19:06 Medical Diagnosis: Fracture Rt Hip Onset Date: Jul 27, 2018 Therapy Diagnosis Therapy Diagnosis: Weakness Height/Weight Height (Feet): 6 Height (Inches): 0.00 Weight (Pounds): 174 Weight (Ounces): 0.0 Precautions Precautions/Isolations: Fall Prevention, Standard Precautions, Pressure Ulcer Safety Interventions: None, Bed Exit Alarm Weight Bear Status Weight Bearing Restriction: Non Weight Bearing Location Restriction: R LE Referral Referral Reason: Activity Tolerance, Self Care, Evaluation/Treatment, Strengthening/ROM Medical History Pertinent Medical History: Atrial Fib, CAD, Dementia, Heart Failure, Renal Insufficiency Additional Medical History Aortic valve replacement, CKD, CHF, HTN, Fx Rt Hip Current History Mr Belle Dominguez, 87 yrs old W/M is a resident of [facility] & was in Dementia unit Pt was dependent in all ADLs & transfers & w/c bound. Pt fell & sustained Rt Hip Fracture . Pt under going surgery tonight. Reviewed History: Yes Social History Home: Senior Care Current Living Status: Alone ADL-Prior Level of Function Therapy Code Descriptions/Definitions Functional [place] Measure: 0=Not Assessed/NA 4=Minimal Assistance 1=Total Assistance 5=Supervision or Setup 2=Maximal Assistance 6=Modified [place] 3=Moderate Assistance 7=Complete [place] Therapy Quality Codes: 6 Independent with activity with or without an assistive device 5 Patient requires set up or clean up by helper. Patient completes activity by themselves 4 Supervision or touching assist (CGA). Sterling provide cues , steadying assist 3 The helper provides less than half the effort to complete the activity 2 The helper provides more than half the effort to complete the activity 1 Dependent. The helper does all the effort to complete an activity 7 Patient refused to complete or attempt activity 9 The patient did not perform the activity before the current illness or injury 88 Not attempted due to Medical conditions or safety concerns Functional Abilities and Goals: Independent: Patient completed the activities by him/herself, with or without an assistive device, with no assistance from a helper. Needed Some Help: Patient needed partial assistance from another person to complete activities. Dependent: A helper completed the activities for the patient. Unknown: Not Applicable: Self Care: Dependent Drive Self: No OT Current Status Subjective Patient non Verbal, non-communicative, Pts daughters were present with him. Mental Status/Objective Patient Orientation: Confused, Eyes Open, Mumbles Current Glasses/Contacts: Yes Dentures/Partials: Yes Hand Dominance: Right ADL-Treatment ADL-Current Pt very confused, disoriented & dependent in all self care tasks , func bed mobility, func transfers , stiffness in both shoulders, pt bed & w/c bound Therapy Code Descriptions/Definitions Functional [place] Measure: 0=Not Assessed/NA 4=Minimal Assistance 1=Total Assistance 5=Supervision or Setup 2=Maximal Assistance 6=Modified [place] 3=Moderate Assistance 7=Complete [place] Therapy Quality Codes: 6 Independent with activity with or without an assistive device 5 Patient requires set up or clean up by helper. Patient completes activity by themselves 4 Supervision or touching assist (CGA). Sterling provide cues , steadying assist 3 The helper provides less than half the effort to complete the activity 2 The helper provides more than half the effort to complete the activity 1 Dependent. The helper does all the effort to complete an activity 7 Patient refused to complete or attempt activity 9 The patient did not perform the activity before the current illness or injury 88 Not attempted due to Medical conditions or safety concerns Eating (FIM): 1 Grooming (FIM): 1 Bathing (FIM): 0 Upper Body Dressing (FIM): 1 Lower Body Dressing (FIM): 0 Toileting (FIM): 0 Transfers (B, C, W/C) (FIM): 2 Education OT Patient Education: Correct positioning, Safety issues Teaching Recipient: Family Teaching Methods: Demonstration Response to Teaching: Verbalize Understanding OT Short Term Goals Short Term Goals Time Frame: Aug 12, 2018 Eating(FIM): 1 Grooming(FIM): 1 Upper Body Dressing(FIM): 1 Other Moderate stiffness in both shoulders , patient keeps his arms crossed over chest . Minimal stiffness in both elbows. Additional Short Term Goals: 3-ImproveStrength/Teo 1=Demonstrate adherence to instructed precautions during ADL tasks. 2=Patient will verbalize/demonstrate understanding of assistive devices/ modifications for ADL. 3=Patient will improve strength/tolerance for activity to enable patient to perform ADL's. Pt will demonstrate decrease in stiffness in both shoulders & both elbows. OT Snf Goals Ball Assembler Goals Time Frame: Aug 26, 2018 Eating (FIM): 1 Grooming(FIM): 1 Upper Body Dressing(FIM): 1 Pt will demonstrate decrease in stiffness in both shoulders & both elbows. Additional Goals: 3-ImproveStrength/Teo 1=Demonstrate adherence to instructed precautions during ADL tasks. 2=Patient will verbalize/demonstrate understanding of assistive devices/ modifications for ADL. 3=Patient will improve strength/tolerance for activity to enable patient to perform ADL's. OT Education/Plan Problem List/Assessment Assessment: Decreased Activ Tolerance, Decreased Safety Aware, Decreased UE Strength, Dependent Transfers, Impaired Bed Mobility, Impaired Cognition, Impaired Coordination, Impaired Funct Balance, Impaired I ADL's, Restricted Funct UE ROM Discharge Recommendations Plan/Recommendations: Continue POC Therapy D/C Recommendations: Senior Care Placement Equpiment Recommendations-D/C: Extended Bath Bench Barriers to Progress Dementia , forgetfulness Treatment Plan/Plan of Care Treatment,Training & Education: Yes Patient would benefit from OT for education, treatment to decrease in stiffness in both shoulders & both elbow ROM. Plan of Care: Caregiver Training, UE Funct Exercise/Act Treatment Duration: Aug 26, 2018 Frequency: 5 times per week Estimated Hrs Per Day: .25 hour per day Agreement: Yes Rehab Potential: Guarded Time/GCodes Start Time: 03:30 Stop Time: 03:56 Total Time Billed (hr/min): 26 Billed Treatment Time 1, EVM 16 min & Ex 10 min Total 26 min MINOO VILLARREAL OT Jul 28, 2018 16:19
[2018-07-28] MEDS ORDERED: ceFAZolin 1,000 MG/10 ML (ANCEF) VIAL ONE (16:47)
[2018-07-28] MEDS ORDERED: ceFAZolin 2 GM IV Premixed 50 ML IV ONE (17:00)
--- NOTE | 2018-07-28 17:14 | Consultation ---
History of Present Illness History of Present Illness Patient Consulted On(alexia/time) 07/28/18 17:12 Date Seen by Provider: Jul 28, 2018 Time Seen by Provider: 17:12 Reason for Visit: R hip fracture History of Present Illness Tate is a demented 87 yr old WM that fell and was unable to bear weight. XR in via ER showed a right hip IT hip fx. Family was agreeabile to operative stabilization. Allergies and Home Medications Allergies Coded Allergies: clindamycin (Verified Allergy, Unknown, 07/27/18) Home Medications Acetaminophen 325 Mg Tablet, 650 MG PO Q4H PRN for PAIN-MILD OR TEMPATURE, ( Reported) Amlodipine Besylate 5 Mg Tablet, 5 MG PO DAILY, (Reported) HOLD FOR BP LESS THAN 100/60 AND PULSE LESS THAN 60 Apixaban 5 Mg Tablet, 5 MG PO BID, (Reported) Divalproex Sodium 500 Mg Tablet.dr, 500 MG PO HS, (Reported) Famotidine 20 Mg Tablet, 20 MG PO BID, (Reported) Furosemide 20 Mg Tablet, 20 MG PO DAILY, (Reported) Gabapentin 300 Mg Capsule, 300 MG PO HS, (Reported) Lactulose 20 Gm/30 Ml Solution, 30 ML PO BID, (Reported) Loperamide HCl 2 Mg Tablet, PO UD PRN for DIARRHEA, (Reported) 2 TABS AFTER 1ST LOOSE STOOL, THEN 1 TAB AFTER EACH SUBSEQUENT LOOSE STOOL NTE 6 TABS IN 24 HOURS Magnesium Hydroxide 400 Mg/5 Ml Oral.susp, 30 ML PO Q12H PRN for CONSTIPATION- 7TH LINE, (Reported) Melatonin 5 Mg Tablet, 5 MG PO HS PRN for INSOMNIA, (Reported) Nystatin 1 Each Powder.ea., TOP BID, (Reported) APPLY TO BILATERAL GROIN AREA EVERY SHIFT, CAN BE MADE PRN AFTER INITAL AREA IS CLEAR Oxybutynin Chloride 5 Mg Tablet, 5 MG PO TID, (Reported) Quetiapine Fumarate 50 Mg Tablet, 50 MG PO BID, (Reported) Terazosin HCl 5 Mg Capsule, 5 MG PO HS, (Reported) HOLD FOR BP LESS THAN 100/60 AND PULSE LESS THAN 60 Patient Home Medication List Home Medication List Reviewed: Yes Past Jzdkxbh-Bhnosb-Fwshgh Hx Patient Social History Alcohol Use: Denies Use Recreational Drug Use: No 2nd Hand Smoke Exposure: No Recent Foreign Travel: No Contact w/Someone Who Travel: No Recent Infectious Disease Expo: No Recent Hopitalizations: No Immunizations Up To Date Tetanus Booster (TDap): Unknown Date of Pneumonia Vaccine: Jun 06, 2016 Date of Influenza Vaccine: Mar 09, 2018 Seasonal Allergies Seasonal Allergies: No Past Medical History Surgeries: Yes Respiratory: No Cardiac: Yes (ATRIAL FLUTTER; CHF) Atrial Fibrillation, High Cholesterol, Hypertension 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) Dementia Sexually Transmitted Disease: No Genitourinary: Yes (chronic kidney disease) Benign Prostatic Hyperpl, Renal Failure Gastrointestinal: Yes (DYSPNAGIA) Gastroesophageal Reflux Musculoskeletal: Yes (GENERALIZED WEAKNESS, GAIT DISTURBANCE) Endocrine: No HEENT: Yes Dysphagia Psychosocial: Yes (psychotic disorder w/delusions; AGITATION AND RESTLESSNESS) Depression Integumentary: No Blood Disorders: No Adverse Reaction/Blood Tranf: No Family Medical History Alzheimer's disease Cardiovascular disease Completed stroke Dementia Hypertension Visual disorder Review of Systems-General Constitutional: no symptoms reported Physical Exam-General Problems Physical Exam Vital Signs Vital Signs - First Documented 07/27/18 07/27/18 17:44 22:20 Temp 97.6 Pulse 79 Resp 16 B/P (MAP) 130/100 (110) Pulse Ox 95 O2 Delivery Room Air O2 Flow Rate 2.00 Capillary Refill : Less Than 3 SecondsLess Than 3 Seconds General Appearance: WD/WN, no apparent distress Extremities: other (R hip: pain with ROM, NVSI, 2/4 DP, PT) Assessment/Plan Assessment/Plan Admission Diagnosis/Plan ASSESSMENT: right hip intertrochanteric hip fracture, dementia PLAN: IM nailing R hip post op DVT prophylaxis Admission Status: Inpatient Order (span 2 midnights) Reason for Inpatient Admission: hip fracture Clinical Quality Measures DVT/VTE Risk/Contraindication: Risk Factor Score Per Nursin RFS Level Per Nursing on Admit: 4+=Very High Contraindications-Pharm: Other *list below* JABARI GRAY DO Jul 28, 2018 17:14
[2018-07-28] MEDS ORDERED: LACTATED RINGERS 1,000 ML IV PRN (17:39)
[2018-07-28] MEDS ORDERED: ROCURONIUM 10 MG/ML 5 ML SYRINGE IV ONE (17:41)
[2018-07-28] MEDS ORDERED: PHENYLEPHRINE 100 MCG/ML 10 ML (ANESTHESIA) SYR ONE (17:41)
[2018-07-28] MEDS ORDERED: morphine INJ 10 MG/ML 1ML (SYR OR VIAL) ONE (17:45)
[2018-07-28] MEDS ORDERED: MILK OF MAGNESIA 400 MG/5 ML 30 ML UDC PO PRN (18:15)
[2018-07-28] MEDS ORDERED: ACETAMINOPHEN 325 MG TABLET PO PRN (18:15)
[2018-07-28] MEDS ORDERED: ceFAZolin 2 GM IV Premixed 50 ML IV SCH ×2 (18:15→22:00)
[2018-07-28] MEDS ORDERED: ONDANSETRON 4 MG/2 ML (SDV) Z0FRAN IVP PRN (18:30)
[2018-07-28] MEDS ORDERED: morphine INJ 10 MG/ML 1ML (SYR OR VIAL) IVP ONE (18:30)
--- NOTE | 2018-07-28 18:33 | Diagnostic Imaging Report ---
INDICATION: Fluoroscopy for right hip surgery. FINDINGS: Fluoroscopy was provided in the OR during right hip surgery. 51 seconds of fluoroscopy was utilized. Multiple images demonstrate intermedullary telly and compression screw transfixing the right hip fracture. Alignment appears anatomic. IMPRESSION: Fluoroscopy during right hip surgery. Dictated by: Dictated on workstation # [id number]
--- NOTE | 2018-07-28 19:15 | NUR ---
TO FLOOR FROM OR AT THIS TIME. PT ALERT TO NAME. O2 @3LITER NC. DE LA FUENTE TO DD CLEAR YELLOW URINE. DRESSING TO RIGHT HIP DRY AND INTACT. NO DISTRESS NOTED. WILL CONTINUE TO MONITOR.
[2018-07-28 20:00] VITALS: BP 131/83
[2018-07-28] MEDS: SENNOSIDES 8.6 MG (SENOKOT) TAB PO SCH (21:21)
[2018-07-29] VITALS: BP 137/82
[2018-07-29] MEDS: HYDROcodone/APAP 5 MG/325 MG (LORTAB) TAB PO SCH ×3 (00:10→07:55)
[2018-07-29] MEDS: ceFAZolin 2 GM IV Premixed 50 ML IV SCH ×2 (00:23→07:59)
--- NOTE | 2018-07-29 00:59 | OPERATIVE REPORT ---
DATE OF SERVICE: 07/28/2018 SURGEON: Bhavik Cunha DO PHYSIOLOGIST: IVETH Pinto PREOPERATIVE DIAGNOSIS: Minimally displaced intertrochanteric right hip fracture. POSTOPERATIVE DIAGNOSIS: Minimally displaced intertrochanteric right hip fracture. PROCEDURE PERFORMED: An intramedullary nailing of right femur. COMPLICATIONS: None. SPECIMEN SENT: None. DRAINS PLACED: None. ANESTHESIA: General endotracheal tube anesthesia. HISTORY OF PRESENT ILLNESS: The patient is a very pleasant 87-year-old demented man who presented to the ER [address] with inability to bear weight. CT scan and imaging demonstrated an intertrochanteric hip fracture. His family decided to have it stabilized, so he could not get out of bed weightbearing. DESCRIPTION OF PROCEDURE: The patient was identified by name on wrist band in the preoperative holding area. His operative site was signed, consent was signed. SCDs were placed. Antibiotics were started. He was taken to the operating room theater and placed under general endotracheal tube anesthesia and transferred to the operating room table, which was a fracture table in the supine position. His unaffected left lower extremity was abducted and externally rotated to get it out of the way. His affected right lower extremity was placed under traction. He was then prepped and draped in the usual sterile fashion. Formal timeout was conducted and a longitudinal incision was then made just proximal to the greater trochanter. We gained access to the intramedullary canal with a high-speed reamer. We then passed a wire into the intramedullary canal. We obtained the appropriate length short titanium trochanteric fixation nail, which we then advanced in intramedullary location and seated it. We then made a small lateral incision where we passed the helical blade through a reamed cortex into the femoral neck and into the femoral head. We did this under both AP and lateral x-ray. I then placed a distal lock and the short TFN nail in the form of a screw, which spanned the medial and lateral cortex of the proximal femur. Then, removed the aiming arm. Final AP and lateral x-ray demonstrated appropriate positioning of the hardware. The wounds were then irrigated and hemostasis was maintained and the wounds were closed utilizing 0 Vicryl followed by 2-0 Vicryl followed by tete for skin. We applied dressings, took the patient in the supine position to the PACU where he awoke without incident. He tolerated the procedure well. The plan at this time is to admit the patient for DVT prophylaxis, medical optimization and ultimately discharged to nursing facility. He will be weightbearing as tolerated. I will see the patient back in 2 weeks. Job ID: [id number] DocumentID: [id number] Dictated Date: 07/28/2018 18:06:10 Figure Skater Date: 07/29/2018 00:59:03 Dictated By: BHAVIK CUNHA DO
[2018-07-29] MEDS: fentaNYL INJECTION 100 MCG/2 ML AMP IV PRN (02:30)
[2018-07-29 04:00] VITALS: BP 127/72
[2018-07-29 04:10] LABS: HEMOGLOBIN 11.7 G/DL (13.3-17.7); MEAN PLATELET VOLUME 10.3 FL (7.4-10.4); RED BLOOD COUNT 3.74 10^6/uL (4.35-5.85); RED CELL DISTRIBUTION WIDTH 13.4 % (10.0-14.5); WHITE BLOOD COUNT 8.1 10^3/uL (4.3-11.0)
[2018-07-29 04:39] LABS: ALANINE AMINOTRANSFERASE 20 U/L (0-55); ALKALINE PHOSPHATASE 81 U/L (40-136); BILIRUBIN,TOTAL 0.7 MG/DL (0.1-1.0); BUN/CREATININE RATIO 21; CALCIUM 8.4 MG/DL (8.5-10.1); CARBON DIOXIDE 22 MMOL/L (21-32); CHLORIDE 108 MMOL/L (98-107); CREATININE SERUM 1.01 MG/DL (0.60-1.30); GFR ESTIMATED > 60; GLUCOSE 142 MG/DL (70-105); POTASSIUM 4.8 MMOL/L (3.6-5.0); SODIUM 138 MMOL/L (135-145); TOTAL PROTEIN 6.4 GM/DL (6.4-8.2)
[2018-07-29] MEDS: CATHETER FLUSH 10 ML SYR IV SCH ×2 (04:51→12:30)
--- NOTE | 2018-07-29 07:33 | Anesthesia-General Post-Op ---
General Patient Condition Mental Status/LOC: Same as Preop Cardiovascular: Satisfactory Nausea/Vomiting: Absent Respiratory: Satisfactory Pain: Controlled Complications: Absent Post Op Complications Complications None Follow Up Care/Instructions Patient Instructions None needed. Anesthesia/Patient Condition Patient Condition Patient is doing well, no complaints, stable vital signs, no apparent adverse anesthesia problems. No complications reported per nursing. NIDHI WELLINGTON CRNA Jul 29, 2018 07:33
[2018-07-29] MEDS: NS IV 1000 ML 1,000 ML IV SCH (07:50)
[2018-07-29] MEDS: DOCUSATE SODIUM 100 MG (COLACE) CAP PO SCH (07:55)
[2018-07-29] MEDS: SENNOSIDES 8.6 MG (SENOKOT) TAB PO SCH (07:56)
[2018-07-29 08:00] VITALS: BP 125/74
--- NOTE | 2018-07-29 08:01 | Progress Note (SOAP) ---
Subjective Time Seen by a Provider: 07:59 Subjective/Events-last exam Patient doing well this morning. Patient is comfortable. Patient has dementia. Patient was without medicines yesterday. Minimally displaced intertrochanteric right hip fracture repaired yesterday Objective Exam Vital Signs Date Time Temp Pulse Resp B/P (MAP) Pulse Ox O2 Delivery O2 Flow Rate FiO2 07/29/18 07:05 94 Room Air 07/29/18 07:00 106 07/29/18 04:00 98.0 104 18 127/72 (90) 94 Nasal Cannula 2.00 07/29/18 02:18 92 Nasal Cannula 3.00 07/29/18 01:00 127 07/29/18 00:00 98.0 102 18 137/82 (100) 94 Nasal Cannula 3.00 07/28/18 21:56 92 Nasal Cannula 3.00 07/28/18 20:00 Nasal Cannula 3.00 07/28/18 20:00 97.9 95 18 131/83 (99) 98 Nasal Cannula 2.50 07/28/18 19:48 94 Nasal Cannula 2.00 07/28/18 19:45 118 07/28/18 16:00 98 20 94 Nasal Cannula 2.50 07/28/18 14:07 94 Room Air 07/28/18 13:00 119 07/28/18 12:00 99.9 100 18 156/66 (96) 93 Nasal Cannula 2.50 07/28/18 11:24 94 Room Air 07/28/18 08:18 94 Room Air 07/28/18 08:00 94 Room Air 2.50 07/28/18 08:00 98.4 104 18 140/64 (89) 93 Nasal Cannula 2.50 I & O 07/29/18 07:00 Intake Total 2200 ml Output Total 1120 ml Balance 1080 ml Capillary Refill : Less Than 3 SecondsLess Than 3 Seconds General Appearance: No Apparent Distress, WD/WN HEENT: Normal ENT Inspection Neck: Normal Inspection Respiratory: Lungs Clear, No Accessory Muscle Use, No Respiratory Distress Cardiovascular: Regular Rate, Rhythm, No Murmur Gastrointestinal: non tender, soft Results Lab Laboratory Tests 07/29/18 04:00 Laboratory Tests 07/29/18 04:00: White Blood Count 8.1, Red Blood Count 3.74L, Hemoglobin 11.7L, Hematocrit 36L, Mean Corpuscular Volume 97, Mean Corpuscular Hemoglobin 31, Mean Corpuscular Hemoglobin Concent 32, Red Cell Distribution Width 13.4, Platelet Count 106L, Mean Platelet Volume 10.3, Sodium Level 138, Potassium Level 4.8, Chloride Level 108H, Carbon Dioxide Level 22, Anion Gap 8, Blood Urea Nitrogen 21H, Creatinine 1.01, Estimat Glomerular Filtration Rate > 60, BUN/Creatinine Ratio 21, Glucose Level 142H, Calcium Level 8.4L, Corrected Calcium 9.2, Total Bilirubin 0.7, Aspartate Amino Transf (AST/SGOT) 34, Alanine Aminotransferase ( ALT/SGPT) 20, Alkaline Phosphatase 81, Total Protein 6.4, Albumin 3.0L Assessment/Plan Assessment/Plan Assess & Plan/Chief Complaint Minimally displaced intertrochanteric right hip fracture. Dementia. Patient doing okay this a.m. Clinical Quality Measures Admission Status Admission Dx Right hip fracture. Dementia. Aortic valve replacement. Hypertension. CAD. DVT/VTE Risk/Contraindication: Risk Factor Score Per Nursin RFS Level Per Nursing on Admit: 4+=Very High Contraindications-Pharm: Other *list below* VIRGINIA BRUCE DO Jul 29, 2018 08:01
--- NOTE | 2018-07-29 09:21 | Diagnostic Imaging Report ---
Indication: Postop right hip replacement. Time of exam 9:10 AM An AP view of the pelvis and 2 views of the right hip were obtained. Postop changes of the right hip are noted. There is an intramedullary telly as well as compression screw transfixing the right hip fracture. Alignment is anatomic. Femoral acetabular alignment is normal. Left hip is intact the rami are intact. Impression: Satisfactory postop right hip. Dictated by: Dictated on workstation # [id number]
--- NOTE | 2018-07-29 09:56 | NUR ---
CM/SS, respond to consult. Patient has established placement with [facility] and will return there when medically stable. He resides on their specialty unit due to his vascular dementia with behavioral disturbance. He was under [facility]ci care, [facility], prior to hospital admission. PC&R Admin indicates patient would have 60 well days and would qualify for Medicare skilled benefits if appropriate. Reviewed OT notes. Patient's baseline was dependent for all ADLs/transfers and was wheelchair bound, he likely would not be able to participate to a level other assisted. Syruper recommends return to his established and familiar environment/placement as soon as medically possible due to his dementia. Following to assist with post hospital care plan.
--- NOTE | 2018-07-29 10:23 | Occupational Ther Daily Note ---
OT Current Status-Daily Note Subjective Pt lying in bed sleeping. Woke to touch then closed eyes again. Attempted to wake pt multiple times. Discussed with nrsg and nrsg stated that pt was combative and had just been given pain meds. Nrsg stated that pt has had dementia since age of 52 and that he has been in NH with total care. No verbal or vocalization to answer questions, grunting and angry facial expressions with movement. Mental Status/Objective Therapy Code Descriptions/Definitions Functional [place] Measure: 0=Not Assessed/NA 4=Minimal Assistance 1=Total Assistance 5=Supervision or Setup 2=Maximal Assistance 6=Modified [place] 3=Moderate Assistance 7=Complete [place] ADL-Treatment Eating (FIM): 1 Toileting (FIM): 1 Other Treatment Attempted to PROM of hand and UE, pt resisted against movement and clamped down on OCHOA's hand. Attempted to assist pt with feeding, pt spit food out. OCHOA assisted nrsg with hygiene after incontinence of BM. When turning pt, pt attempted to swat at nrsg. After therapy, pt lying on R side with call light in reach. Daughter present in room. Reported to nrsg that OCHOA attempted to feed pt, nrsg to attempt. OT Short Term Goals Short Term Goals Time Frame: Aug 12, 2018 Eating(FIM): 1 Grooming(FIM): 1 Upper Body Dressing(FIM): 1 Other Moderate stiffness in both shoulders , patient keeps his arms crossed over chest . Minimal stiffness in both elbows. Additional Short Term Goals: 3-ImproveStrength/Teo 1=Demonstrate adherence to instructed precautions during ADL tasks. 2=Patient will verbalize/demonstrate understanding of assistive devices/ modifications for ADL. 3=Patient will improve strength/tolerance for activity to enable patient to perform ADL's. OT Environmental Compliance Engineer Goals Retirement Goals Time Frame: Aug 26, 2018 Eating (FIM): 1 Grooming(FIM): 1 Upper Body Dressing(FIM): 1 Pt will demonstrate decrease in stiffness in both shoulders & both elbows. Additional Goals: 3-ImproveStrength/Teo 1=Demonstrate adherence to instructed precautions during ADL tasks. 2=Patient will verbalize/demonstrate understanding of assistive devices/ modifications for ADL. 3=Patient will improve strength/tolerance for activity to enable patient to perform ADL's. OT Education/Plan Discharge Recommendations Plan/Recommendations: Continue POC Treatment Plan/Plan of Care Patient would benefit from OT for education, treatment and training to promote independence in ADL's, mobility, safety and/or upper extremity function for ADL' s. Plan of Care: Caregiver Training, UE Funct Exercise/Act Treatment Duration: Aug 26, 2018 Frequency: 5 times per week Estimated Hrs Per Day: .25 hour per day Agreement: Yes Rehab Potential: Guarded Time/GCodes Start Time: 10:00 Stop Time: 10:23 Total Time Billed (hr/min): 23 Billed Treatment Time 1 visit-FA 2 (23 min) GRACIE CHANEL Jul 29, 2018 10:23
[2018-07-29 12:00] VITALS: BP 130/68
--- NOTE | 2018-07-29 12:30 | Physical Therapy Evaluation ---
PT Evaluation-General Medical Diagnosis Admission Date Jul 27, 2018 at 19:06 Medical Diagnosis: Fracture Rt Hip Onset Date: Jul 27, 2018 Therapy Diagnosis Therapy Diagnosis: weakness Height/Weight Height (Feet): 6 Height (Inches): 0.00 Weight (Pounds): 174 Weight (Ounces): 0.0 Precautions Precautions/Isolations: Fall Prevention, Standard Precautions, Pressure Ulcer Weight Bear Status Right Lower Extremity: Right Weight Bearing/Tolerated Left Lower Extremity: Left Weight Bearing/Tolerated Referral Physician: Gibran Reason for Referral: Evaluation/Treatment Medical History Pertinent Medical History: Atrial Fib, CAD, Dementia, Heart Failure, Renal Insufficiency Additional Medical History Longstanding hx of dementia Current History Pt attempted to stand up unattended and sustained a fall, fracturing his right hip; post ORIF Reviewed History: Yes Social History Home: [facility] Current Living Status: Alone Prior/Core FIM Prior Level of Function Therapy Code Descriptions/Definitions Functional [place] Measure: 0=Not Assessed/NA 4=Minimal Assistance 1=Total Assistance 5=Supervision or Setup 2=Maximal Assistance 6=Modified [place] 3=Moderate Assistance 7=Complete [place] Therapy Quality Codes: 6 Independent with activity with or without an assistive device 5 Patient requires set up or clean up by helper. Patient completes activity by themselves 4 Supervision or touching assist (CGA). [place] provide cues , steadying assist 3 The helper provides less than half the effort to complete the activity 2 The helper provides more than half the effort to complete the activity 1 Dependent. The helper does all the effort to complete an activity 7 Patient refused to complete or attempt activity 9 The patient did not perform the activity before the current illness or injury 88 Not attempted due to Medical conditions or safety concerns Functional Abilities and Goals: Independent: Patient completed the activities by him/herself, with or without an assistive device, with no assistance from a helper. Needed Some Help: Patient needed partial assistance from another person to complete activities. Dependent: A helper completed the activities for the patient. Unknown: Not Applicable: Per daughter, pt required assist with all mobilty but was able to participate. He spent much of his time in a wheelchair as he was unsteady on his feet, but was able to stand and transfer to a wheelchair. PT Evaluation-Current Subjective No verbalization. Daughter present and agreeable to PT visit. Pt;s eyes open but no eye contact. Pain Numeric Pain Scale: 7 Location: Right Location Body Site: Hip Comment: FLACC Pt/Family Goals return to NH when medically stable Objective Patient Orientation: Confused, Eyes Open Problem Solving: Poor Attachments: IV ROM/Strength ROM Lower Extremities functional but pt resistant to PROM so unable to fully assess. Strength Lower Extremities unable to follow cues to assess Integumentary/Posture Integumentary refer to nursing notes. Bowel Incontinence: Yes Bladder Incontinence: Yes Posture rounded shoulders. Sensory Hand Dominance: Right Transfers Therapy Code Descriptions/Definitions Functional [place] Measure: 0=Not Assessed/NA 4=Minimal Assistance 1=Total Assistance 5=Supervision or Setup 2=Maximal Assistance 6=Modified [place] 3=Moderate Assistance 7=Complete [place] Transfers (B, C, W/C) (FIM): 1 Scootin Rollin Supine to/from Sit: 1 depended for rolling and scooting in bed; dependent to transfer to sit EOB and dependent to stay upright at EOB; all bed mobility required 2 person assist; in sitting, pt is retropulsive and unable to attempt to maintian sitting up; pt slightly resistive to movement but generally cooperative. Pt in bed post treatment with heels elevated and needs met. Daughter present. Gait Mode of Locomotion: Wheelchair Balance Sitting Static: Poor Treatment Sat EOB x 10 minutes; dep to stay upright; retropulsice; unable to follow cues to maintain sitting up. unsafe to attempt standing as pt not particularly participatory or able to follow cues due to dementia. Assessment/Needs Rehab Potential: Guarded PT Family And Consumer Education Teacher Goals Family And Consumer Education Teacher Goals PT Family And Consumer Education Teacher Goals Time Frame: Aug 05, 2018 Transfers (B,C,W/C) (FIM): 1 (recommend dayna transfer at this time) PT Plan Problem List Problem List: Activity Tolerance, Functional Strength, Safety, Transfer, Bed Mobility Treatment/Plan Treatment Plan: Continue Plan of Care Treatment Plan: Bed Mobility, Education, Functional Activity Teo, Functional Strength, Safety, Transfers Treatment Duration: Aug 05, 2018 Frequency: 6 times per week Estimated Hrs Per Day: .25 hour per day Patient and/or Family Agrees t: Yes (fmaily) Safety Risks/Education educated daughter on what to expect with therapy and discussed/reviewed possiblity of dayna transer. Discharge Recommendations Therapy D/C Recommendations: Long Term (TCU/NH) Time/GCodes Time In: 1150 Time Out: 1215 Total Billed Treatment Time: 25 Total Billed Treatment visit EVM 15 FA 10 GRACIE DUDLEY PT Jul 29, 2018 12:30
--- NOTE | 2018-07-29 12:40 | Discharge Inst-Simple/Standard ---
Discharge Inst-Standard Patient Instructions/Follow Up Plan of Care/Instructions/FU: advise aspirn 325 daily with food in addition to eliquis keep incision clean and dry follow up in clinic in 2 weeks for incision care and check Activity as Tolerated: No Discharge Diet: No Restrictions [facility]: mehdi pugh wound drainage TMI LOPES Jul 29, 2018 12:40
--- NOTE | 2018-07-29 12:43 | Progress Note (SOAP) ---
Subjective Date Seen by a Provider: Jul 29, 2018 Time Seen by a Provider: 12:41 Subjective/Events-last exam patient laying in bed, no apparent distress. Nurse reports he has been combative at times, family reports some pain. Objective Exam Vital Signs Date Time Temp Pulse Resp B/P (MAP) Pulse Ox O2 Delivery O2 Flow Rate FiO2 07/29/18 11:42 96 Room Air 07/29/18 08:00 94 Room Air 2.00 07/29/18 07:05 94 Room Air 07/29/18 07:00 106 07/29/18 04:00 98.0 104 18 127/72 (90) 94 Nasal Cannula 2.00 07/29/18 02:18 92 Nasal Cannula 3.00 07/29/18 01:00 127 07/29/18 00:00 98.0 102 18 137/82 (100) 94 Nasal Cannula 3.00 07/28/18 21:56 92 Nasal Cannula 3.00 07/28/18 20:00 Nasal Cannula 3.00 07/28/18 20:00 97.9 95 18 131/83 (99) 98 Nasal Cannula 2.50 07/28/18 19:48 94 Nasal Cannula 2.00 07/28/18 19:45 118 07/28/18 16:00 98 20 94 Nasal Cannula 2.50 07/28/18 14:07 94 Room Air 07/28/18 13:00 119 I & O 07/29/18 07:00 Intake Total 2200 ml Output Total 1120 ml Balance 1080 ml Capillary Refill : Less Than 3 SecondsLess Than 3 Seconds General Appearance: No Apparent Distress Respiratory: No Accessory Muscle Use, No Respiratory Distress Extremity: Other (clean and dry bandage to right hip) Skin: Normal Color, Warm/Dry Results Lab Laboratory Tests 07/29/18 04:00: White Blood Count 8.1, Red Blood Count 3.74L, Hemoglobin 11.7L, Hematocrit 36L, Mean Corpuscular Volume 97, Mean Corpuscular Hemoglobin 31, Mean Corpuscular Hemoglobin Concent 32, Red Cell Distribution Width 13.4, Platelet Count 106L, Mean Platelet Volume 10.3, Sodium Level 138, Potassium Level 4.8, Chloride Level 108H, Carbon Dioxide Level 22, Anion Gap 8, Blood Urea Nitrogen 21H, Creatinine 1.01, Estimat Glomerular Filtration Rate > 60, BUN/Creatinine Ratio 21, Glucose Level 142H, Calcium Level 8.4L, Corrected Calcium 9.2, Total Bilirubin 0.7, Aspartate Amino Transf (AST/SGOT) 34, Alanine Aminotransferase ( ALT/SGPT) 20, Alkaline Phosphatase 81, Total Protein 6.4, Albumin 3.0L Microbiology 07/28/18 MRSA Screen - Final, Complete MRSA not isolated Assessment/Plan Assessment/Plan Assess & Plan/Chief Complaint assessment: pod #1 s/p right hip TFN dementia plan orthopedically stable ok to dismiss back to care facility when ok with medical team advise asprin 325 ec with food for 3 weeks in addition to eliquis Clinical Quality Measures DVT/VTE Risk/Contraindication: Risk Factor Score Per Nursin RFS Level Per Nursing on Admit: 4+=Very High Contraindications-Pharm: Other *list below* TIM LOPES Jul 29, 2018 12:43
[2018-07-29] MEDS ORDERED: ASPI325T32 PO (13:50)
[2018-07-29 14:25] VITALS: BP 127/72
--- NOTE | 2018-07-29 14:33 | NUR ---
Report called at this time to Luz Elena, nurse who will assume care of this patient when he arrives back to this facility.
--- NOTE | 2018-07-29 14:48 | NUR ---
CM/SS. Patient discharged back to his established environment at [facility] via their transport, schedule to be determined by SNF. Patient will not qualify for skilled benefits because he did not meet Medicare 3 midnight criteria. Daughter and SNF/Luz Elena aware of same. Machine Greaser requested PT/OT orders for patient recovery, hopeful these can be billed to Medicare B. Otherwise, patient has [facility] and will be halfway care. Daughter went to SNF and got clean and warm clothing for patient to wear enroute. Prepared continuum of care packet to accompany patient.
--- NOTE | 2018-07-30 07:22 | Discharge Summary ---
Diagnosis/Chief Complaint Date of Admission Jul 27, 2018 at 19:06 Date of Discharge Jul 29, 2018 at 14:30 Discharge Date: Jul 29, 2018 Discharge Time: 07:19 Discharge Diagnosis Fall. Nondisplaced intertrochanteric fracture of right femur. Presence of prosthetic heart valve. Hyperlipidemia. Vascular dementia with behavioral disturbance. DO NOT RESUSCITATE. Benign prostatic hypertrophy. Dysphagia. Heart failure. Long-term use of anticoagulants. Presence of prosthetic heart valve. Unspecified atrial fibrillation Reason Hospital Visit Patient is a resident of a assisted. Patient fell over this a.m.'s and landed on his right hip. Right hip was hurting. Patient has dementia. 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 Patient transferred to emergency room with patient had a nondisplaced right femoral neck fracture Patient unable to give any history Discharge Summary Procedures Orthopedic surgery of hip Consultations Orthopedic Discharge Physical Examination Allergies: Coded Allergies: clindamycin (Verified Allergy, Unknown, 07/27/18) Vitals & I&Os Vital Signs Date Time Temp Pulse Resp B/P (MAP) Pulse Ox O2 Delivery O2 Flow Rate FiO2 07/29/18 14:46 96 Room Air 07/29/18 14:25 106 18 127/72 07/29/18 12:00 98.2 2.00 Hospital Course Patient did well. Transferred back to assisted Labs (last 24 hrs) Laboratory Tests 07/27/18 17:45: White Blood Count 4.5, Red Blood Count 4.44, Hemoglobin 14.0, Hematocrit 43, Mean Corpuscular Volume 97, Mean Corpuscular Hemoglobin 32, Mean Corpuscular Hemoglobin Concent 33, Red Cell Distribution Width 13.4, Platelet Count 137, Mean Platelet Volume 10.1, Neutrophils (%) (Auto) 51, Lymphocytes (%) (Auto) 37 , Monocytes (%) (Auto) 8, Eosinophils (%) (Auto) 4, Basophils (%) (Auto) 0, Neutrophils # (Auto) 2.3, Lymphocytes # (Auto) 1.7, Monocytes # (Auto) 0.4, Eosinophils # (Auto) 0.2, Basophils # (Auto) 0.0, Prothrombin Time 13.8, INR Comment 1.1, Sodium Level 138, Potassium Level 4.2, Chloride Level 104, Carbon Dioxide Level 24, Anion Gap 10, Blood Urea Nitrogen 32H, Creatinine 1.11, Estimat Glomerular Filtration Rate > 60, BUN/Creatinine Ratio 29, Glucose Level 129H, Calcium Level 9.1, Corrected Calcium 9.5, Total Bilirubin 0.5, Aspartate Amino Transf (AST/SGOT) 30, Alanine Aminotransferase (ALT/SGPT) 25, Alkaline Phosphatase 103, Total Protein 7.6, Albumin 3.5 07/27/18 18:00: Urine Color YELLOW, Urine Clarity SLIGHTLY CLOUDY, Urine pH 7, Urine Specific [place] 1.015L, Urine Protein NEGATIVE, Urine Glucose (UA) NEGATIVE, Urine Ketones NEGATIVE, Urine Nitrite NEGATIVE, Urine Bilirubin NEGATIVE, Urine Urobilinogen 1, Urine Leukocyte Esterase NEGATIVE, Urine RBC (Auto) NEGATIVE, Urine RBC NONE, Urine WBC NONE, Urine Crystals NONE, Urine Bacteria NEGATIVE, Urine Casts NONE, Urine Mucus NEGATIVE, Urine Culture Indicated NO 07/29/18 04:00: White Blood Count 8.1, Red Blood Count 3.74L, Hemoglobin 11.7L, Hematocrit 36L, Mean Corpuscular Volume 97, Mean Corpuscular Hemoglobin 31, Mean Corpuscular Hemoglobin Concent 32, Red Cell Distribution Width 13.4, Platelet Count 106L, Mean Platelet Volume 10.3, Sodium Level 138, Potassium Level 4.8, Chloride Level 108H, Carbon Dioxide Level 22, Anion Gap 8, Blood Urea Nitrogen 21H, Creatinine 1.01, Estimat Glomerular Filtration Rate > 60, BUN/Creatinine Ratio 21, Glucose Level 142H, Calcium Level 8.4L, Corrected Calcium 9.2, Total Bilirubin 0.7, Aspartate Amino Transf (AST/SGOT) 34, Alanine Aminotransferase ( ALT/SGPT) 20, Alkaline Phosphatase 81, Total Protein 6.4, Albumin 3.0L Microbiology 07/28/18 MRSA Screen - Final, Complete MRSA not isolated Laboratory Tests 07/27/18 17:45 07/29/18 04:00 Pending Labs Microbiology Date/Time Source Procedure Growth Status 07/28/18 09:20 Nasal MRSA Screen - Final MRSA not isolated Complete Laboratory Tests 07/27/18 17:45: White Blood Count 4.5, Red Blood Count 4.44, Hemoglobin 14.0, Hematocrit 43, Mean Corpuscular Volume 97, Mean Corpuscular Hemoglobin 32, Mean Corpuscular Hemoglobin Concent 33, Red Cell Distribution Width 13.4, Platelet Count 137, Mean Platelet Volume 10.1, Neutrophils (%) (Auto) 51, Lymphocytes (%) (Auto) 37 , Monocytes (%) (Auto) 8, Eosinophils (%) (Auto) 4, Basophils (%) (Auto) 0, Neutrophils # (Auto) 2.3, Lymphocytes # (Auto) 1.7, Monocytes # (Auto) 0.4, Eosinophils # (Auto) 0.2, Basophils # (Auto) 0.0, Prothrombin Time 13.8, INR Comment 1.1, Sodium Level 138, Potassium Level 4.2, Chloride Level 104, Carbon Dioxide Level 24, Anion Gap 10, Blood Urea Nitrogen 32, Creatinine 1.11, Estimat Glomerular Filtration Rate > 60, BUN/Creatinine Ratio 29, Glucose Level 129, Calcium Level 9.1, Corrected Calcium 9.5, Total Bilirubin 0.5, Aspartate Amino Transf (AST/SGOT) 30, Alanine Aminotransferase (ALT/SGPT) 25, Alkaline Phosphatase 103, Total Protein 7.6, Albumin 3.5 07/27/18 18:00: Urine Color YELLOW, Urine Clarity SLIGHTLY CLOUDY, Urine pH 7, Urine Specific [place] 1.015, Urine Protein NEGATIVE, Urine Glucose (UA) NEGATIVE, Urine Ketones NEGATIVE, Urine Nitrite NEGATIVE, Urine Bilirubin NEGATIVE, Urine Urobilinogen 1, Urine Leukocyte Esterase NEGATIVE, Urine RBC (Auto) NEGATIVE, Urine RBC NONE, Urine WBC NONE, Urine Crystals NONE, Urine Bacteria NEGATIVE, Urine Casts NONE, Urine Mucus NEGATIVE, Urine Culture Indicated NO 07/29/18 04:00: White Blood Count 8.1, Red Blood Count 3.74, Hemoglobin 11.7, Hematocrit 36, Mean Corpuscular Volume 97, Mean Corpuscular Hemoglobin 31, Mean Corpuscular Hemoglobin Concent 32, Red Cell Distribution Width 13.4, Platelet Count 106, Mean Platelet Volume 10.3, Sodium Level 138, Potassium Level 4.8, Chloride Level 108, Carbon Dioxide Level 22, Anion Gap 8, Blood Urea Nitrogen 21, Creatinine 1.01, Estimat Glomerular Filtration Rate > 60, BUN/Creatinine Ratio 21, Glucose Level 142, Calcium Level 8.4, Corrected Calcium 9.2, Total Bilirubin 0.7, Aspartate Amino Transf (AST/SGOT) 34, Alanine Aminotransferase ( ALT/SGPT) 20, Alkaline Phosphatase 81, Total Protein 6.4, Albumin 3.0 Discharge Home Medications: Active Scripts Active Aspirin EC (Aspirin) 325 Mg Tablet.dr 325 Mg PO DAILY 21 Days Reported Nystatin 1 Each Powder.ea. TOP BID APPLY TO BILATERAL GROIN AREA EVERY SHIFT, CAN BE MADE PRN AFTER INITAL AREA IS CLEAR Milk of Magnesia (Magnesium Hydroxide) 400 Mg/5 Ml Oral.susp 30 Ml PO Q12H PRN Melatonin 5 Mg Tablet 5 Mg PO HS PRN Tylenol (Acetaminophen) 325 Mg Tablet 650 Mg PO Q4H PRN Oxybutynin Chloride 5 Mg Tablet 5 Mg PO TID Seroquel (Quetiapine Fumarate) 50 Mg Tablet 50 Mg PO BID Lactulose 20 Gm/30 Ml Solution 30 Ml PO BID Eliquis (Apixaban) 5 Mg Tablet 5 Mg PO BID Imodium A-D (Loperamide HCl) 2 Mg Tablet PO UD PRN 2 TABS AFTER 1ST LOOSE STOOL, THEN 1 TAB AFTER EACH SUBSEQUENT LOOSE STOOL NTE 6 TABS IN 24 HOURS Divalproex Sodium 500 Mg Tablet.dr 500 Mg PO HS Terazosin HCl 5 Mg Capsule 5 Mg PO HS HOLD FOR BP LESS THAN 100/60 AND PULSE LESS THAN 60 Gabapentin 300 Mg Capsule 300 Mg PO HS Furosemide 20 Mg Tablet 20 Mg PO DAILY Famotidine 20 Mg Tablet 20 Mg PO BID Amlodipine Besylate 5 Mg Tablet 5 Mg PO DAILY HOLD FOR BP LESS THAN 100/60 AND PULSE LESS THAN 60 Instructions to patient/family Please see electronic discharge instructions given to patient. Clinical Quality Measures DVT/VTE Risk/Contraindication: Risk Factor Score Per Nursin RFS Level Per Nursing on Admit: 4+=Very High Contraindications-Pharm: Other *list below* VIRGINIA BRUCE DO Jul 30, 2018 07:22
== END 2018-07-29 14:30 | DRG 481 ==
LOC: EDUNIT# 17:40 → ER 17:41 → 4TH 19:06
PROVIDERS: ADMIT Family Medicine; ATTEND Family Medicine
PROC: 0QH636Z Insertion of Intramedullary Internal Fixation Device into Right Upper Femur, Percutaneous Approach (ICD-10-PCS; principal; 2018-07-28 16:55)
DX: S72.144A Nondisplaced intertrochanteric fracture of right femur, initial encounter for closed fracture (principal); I13.0 Hypertensive heart and chronic kidney disease with heart failure and stage 1 through stage 4 chronic kidney disease, or unspecified chronic kidney disease; I50.9 Heart failure, unspecified; N18.9 Chronic kidney disease, unspecified; F01.51 Vascular dementia, unspecified severity, with behavioral disturbance; I48.92 Unspecified atrial flutter; I48.91 Unspecified atrial fibrillation; I25.10 Atherosclerotic heart disease of native coronary artery without angina pectoris; Z66 Do not resuscitate; F29 Unspecified psychosis not due to a substance or known physiological condition; F32.9 Major depressive disorder, single episode, unspecified; K21.9 Gastro-esophageal reflux disease without esophagitis; E78.00 Pure hypercholesterolemia, unspecified; N40.0 Benign prostatic hyperplasia without lower urinary tract symptoms; R26.9 Unspecified abnormalities of gait and mobility; R53.1 Weakness; R13.10 Dysphagia, unspecified; W01.0XXA Fall on same level from slipping, tripping and stumbling without subsequent striking against object, initial encounter; Y92.129 Unspecified place in nursing home as the place of occurrence of the external cause; Z95.2 Presence of prosthetic heart valve; Z79.01 Long term (current) use of anticoagulants
CPT/HCPCS: 36415; 51701; 70450; 71045; 72125; 72192; 80053; 81000; 85025; 85027; 85610; 87081; 90471; 93005; 94664; 94760

== ENCOUNTER 2018-08-09 17:50 | Emergency (ER) | payer MEDICARE, MEDICAID ==
[~2018-08-09] VITALS: Ht 177.8 cm; Wt 81.6 kg
[~2018-08-09 17:50] MED LIST changes: +ASPI325T32 PO; +NYST1POW22 TOP
--- NOTE | 2018-08-09 18:14 | ED General ---
General Stated Complaint: FEVER Source of Information: Patient Exam Limitations: No Limitations History of Present Illness Date Seen by Provider: Aug 09, 2018 Time Seen by Provider: 17:57 Initial Comments Patient presents to ER by EMS from the residential where he is with advanced dementia, contractures, recent hip fracture on the right, and presents today with fever 101 and tachycardia and irritable heartbeat per staff. The patient is a history of atrial fibrillation on Eliquis but no rate or rhythm control meds. No cough noted. History of UTI. Oxygen sats slipping in the 80s. Patient had a surgery on 27 July of this year. He did receive a hydrocodone this morning around 5:00 AM and a Tylenol 650 suppository at 1700 per residential staff. Allergies and Home Medications Allergies Coded Allergies: clindamycin (Verified Allergy, Unknown, 07/27/18) Home Medications Acetaminophen 325 Mg Tablet, 650 MG PO Q4H PRN for PAIN-MILD OR TEMPATURE, ( Reported) Amlodipine Besylate 5 Mg Tablet, 5 MG PO DAILY, (Reported) HOLD FOR BP LESS THAN 100/60 AND PULSE LESS THAN 60 Apixaban 5 Mg Tablet, 5 MG PO BID, (Reported) Aspirin 325 Mg Tablet.dr, 325 MG PO DAILY Prescribed by: SANTIAGO TAYLOR on 07/29/18 1350 Divalproex Sodium 500 Mg Tablet.dr, 500 MG PO HS, (Reported) Famotidine 20 Mg Tablet, 20 MG PO BID, (Reported) Furosemide 20 Mg Tablet, 20 MG PO DAILY, (Reported) Gabapentin 300 Mg Capsule, 300 MG PO HS, (Reported) Lactulose 20 Gm/30 Ml Solution, 30 ML PO BID, (Reported) Loperamide HCl 2 Mg Tablet, PO UD PRN for DIARRHEA, (Reported) 2 TABS AFTER 1ST LOOSE STOOL, THEN 1 TAB AFTER EACH SUBSEQUENT LOOSE STOOL NTE 6 TABS IN 24 HOURS Magnesium Hydroxide 400 Mg/5 Ml Oral.susp, 30 ML PO Q12H PRN for CONSTIPATION- 7TH LINE, (Reported) Melatonin 5 Mg Tablet, 5 MG PO HS PRN for INSOMNIA, (Reported) Nystatin 1 Each Powder.ea., TOP BID, (Reported) APPLY TO BILATERAL GROIN AREA EVERY SHIFT, CAN BE MADE PRN AFTER INITAL AREA IS CLEAR Oxybutynin Chloride 5 Mg Tablet, 5 MG PO TID, (Reported) Quetiapine Fumarate 50 Mg Tablet, 50 MG PO BID, (Reported) Terazosin HCl 5 Mg Capsule, 5 MG PO HS, (Reported) HOLD FOR BP LESS THAN 100/60 AND PULSE LESS THAN 60 Patient Home Medication List Home Medication List Reviewed: Yes Review of Systems Review of Systems Constitutional: see HPI (the patient gives no meaningful review of systems given his advanced dementia.) Past Xpulbyw-Wiavpa-Hqzzpm Hx Patient Social History Alcohol Use: Denies Use Recreational Drug Use: No Smoking Status: Never a Smoker 2nd Hand Smoke Exposure: No Recent Hopitalizations: No Immunizations Up To Date Tetanus Booster (TDap): Unknown Date of Pneumonia Vaccine: Jun 06, 2016 Date of Influenza Vaccine: Mar 09, 2018 Seasonal Allergies Seasonal Allergies: No Past Medical History Surgeries: Yes Respiratory: No Cardiac: Yes (ATRIAL FLUTTER; CHF) Atrial Fibrillation, High Cholesterol, Hypertension 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) Dementia Sexually Transmitted Disease: No Genitourinary: Yes (chronic kidney disease) Benign Prostatic Hyperpl, Renal Failure Gastrointestinal: Yes (DYSPNAGIA) Gastroesophageal Reflux Musculoskeletal: Yes (GENERALIZED WEAKNESS, GAIT DISTURBANCE) Endocrine: No HEENT: Yes Dysphagia Psychosocial: Yes (psychotic disorder w/delusions; AGITATION AND RESTLESSNESS) Depression Integumentary: No Blood Disorders: No Adverse Reaction/Blood Tranf: No Family Medical History Alzheimer's disease Cardiovascular disease Completed stroke Dementia Hypertension Visual disorder Physical Exam-Suspected Sepsis Physical Exam Vital Signs Vital Signs - First Documented 08/09/18 08/09/18 18:00 18:27 Temp 100.0 Pulse 130 Resp 20 B/P (MAP) 105/63 (77) Pulse Ox 94 O2 Delivery Nasal Cannula O2 Flow Rate 2.00 Capillary Refill : Height, Weight, BMI Height: 6'0.00" Weight: 174lbs. 0.0oz. 78.423157ha; 23.6 BMI Method:Estimated General Appearance: No Apparent Distress, Other (cachectic and contractures all 4 extremities) Eyes: Bilateral Eye Normal Inspection, Bilateral Eye PERRL, Bilateral Eye EOMI HEENT: PERRL/EOMI, TMs Normal, Normal ENT Inspection, Pharynx Normal; No Moist Mucous Membranes Neck: Full Range of Motion, Normal Inspection Respiratory: Lungs Clear, Normal Breath Sounds, No Accessory Muscle Use, No Respiratory Distress Cardiovascular: No Edema, Normal Peripheral Pulses, Irregularly Irregular Gastrointestinal: Normal Bowel Sounds, Non Tender, Soft Back: Other Extremity: Normal Capillary Refill, No Pedal Edema Skin: normal color, warm/dry, other (no pressure ulcers or skin breakdown. 2 surgical wounds on the right thigh non-erythematous without discharge fluctuance or drainage.) Focused Exam Lactate Level 08/09/18 18:00: Lactic Acid Level 1.76 Lactic Acid Level Laboratory Tests Test 08/09/18 18:00 Lactic Acid Level 1.76 MMOL/L (0.50-2.00) Progress/Results/Core Measures Suspected Sepsis SIRS Temperature: Pulse: Respiratory Rate: Laboratory Tests 08/09/18 18:00: White Blood Count 13.2H Blood Pressure / Mean: 08/09/18 18:00: Lactic Acid Level 1.76 Laboratory Tests 08/09/18 18:00: Creatinine 1.62H, INR Comment 1.4, Platelet Count 377, Total Bilirubin 0.7 Results/Orders Lab Results Laboratory Tests Test 08/09/18 18:00 08/09/18 18:10 Range/Units White Blood Count 13.2 H 4.3-11.0 10^3/uL Red Blood Count 3.82 L 4.35-5.85 10^6/uL Hemoglobin 12.0 L 13.3-17.7 G/DL Hematocrit 38 L 40-54 % Mean Corpuscular Volume 101 H 80-99 FL Mean Corpuscular Hemoglobin 31 25-34 PG Mean Corpuscular Hemoglobin Concent 31 L 32-36 G/DL Red Cell Distribution Width 14.8 H 10.0-14.5 % Platelet Count 377 130-400 10^3/uL Mean Platelet Volume 9.4 7.4-10.4 FL Neutrophils (%) (Auto) 78 H 42-75 % Lymphocytes (%) (Auto) 14 12-44 % Monocytes (%) (Auto) 7 0-12 % Eosinophils (%) (Auto) 1 0-10 % Basophils (%) (Auto) 0 0-10 % Neutrophils # (Auto) 10.3 H 1.8-7.8 X 10^3 Lymphocytes # (Auto) 1.8 1.0-4.0 X 10^3 Monocytes # (Auto) 1.0 0.0-1.0 X 10^3 Eosinophils # (Auto) 0.1 0.0-0.3 10^3/uL Basophils # (Auto) 0.0 0.0-0.1 10^3/uL Prothrombin Time 17.6 H 12.2-14.7 SEC INR Comment 1.4 0.8-1.4 Activated Partial Thromboplast Time 27 24-35 SEC Sodium Level 162 *H 135-145 MMOL/L Potassium Level 3.7 3.6-5.0 MMOL/L Chloride Level 124 H 98-107 MMOL/L Carbon Dioxide Level 25 21-32 MMOL/L Anion Gap 13 5-14 MMOL/L Blood Urea Nitrogen 61 H 7-18 MG/DL Creatinine 1.62 H 0.60-1.30 MG/DL Estimat Glomerular Filtration Rate 41 BUN/Creatinine Ratio 38 Glucose Level 109 H 70-105 MG/DL Lactic Acid Level 1.76 0.50-2.00 MMOL/L Calcium Level 8.6 8.5-10.1 MG/DL Corrected Calcium 9.6 8.5-10.1 MG/DL Magnesium Level 2.2 1.8-2.4 MG/DL Total Bilirubin 0.7 0.1-1.0 MG/DL Aspartate Amino Transf (AST/SGOT) 35 H 5-34 U/L Alanine Aminotransferase (ALT/SGPT) 26 0-55 U/L Alkaline Phosphatase 138 H 40-136 U/L Total Protein 7.0 6.4-8.2 GM/DL Albumin 2.7 L 3.2-4.5 GM/DL Urine Color YELLOW Urine Clarity SLIGHTLY CLOUDY Urine pH 6 5-9 Urine Specific [place] 1.020 1.016-1.022 Urine Protein 1+ H NEGATIVE Urine Glucose (UA) NEGATIVE NEGATIVE Urine Ketones NEGATIVE NEGATIVE Urine Nitrite NEGATIVE NEGATIVE Urine Bilirubin 1+ H NEGATIVE Urine Urobilinogen 4 H NORMAL MG/DL Urine Leukocyte Esterase 1+ H NEGATIVE Urine RBC (Auto) 3+ H NEGATIVE Urine RBC 0-2 /HPF Urine WBC 0-2 /HPF Urine Crystals NONE /LPF Urine Bacteria NEGATIVE /HPF Urine Casts NONE /LPF Urine Mucus SMALL H /LPF Urine Culture Indicated NO Micro Results Microbiology 08/09/18 Influenza Types A,B Antigen (JANET) - Final, Complete My Orders Orders - BILL HUYNH Saline Lock/Iv-Start (08/09/18 18:10) Ns Iv 1000 Ml (Sodium Chloride 0.9%) (2/3/19 18:15) Magnesium (08/09/18 18:10) Cefepime Injection (Maxipime Injection) (08/09/18 19:00) Medications Given in ED Current Medications Medications Dose Ordered Sig/Giovanna Route Start Time Stop Time Status Last Admin Dose Admin Sodium Chloride 1,500 ml @ 1,500 mls/hr ONCE ONCE IV 08/09/18 18:15 08/09/18 19:14 DC 08/09/18 18:49 1,500 MLS/HR Vital Signs/I&O 08/09/18 08/09/18 18:00 18:27 Temp 100.0 Pulse 130 Resp 20 B/P (MAP) 105/63 (77) Pulse Ox 94 95 O2 Delivery Nasal Cannula O2 Flow Rate 2.00 Capillary Refill : Progress Note : Time: 18:44 Progress Note Plans to see how his A. fib with rapid ventricular response response to IV fluids. Suspect sepsis or urinary versus pneumonia. The wounds on the side of his right hip do not appear to be red or have any discharge, fluctuance or other evidence of infection. Urine doesn't show any evidence of infection but there are some red blood cells. Consider a kidney stone. Patient is not able to indicate if he is in pain or not. We'll see what the influenza and chest x-ray showed next. Plan to get some IV fluids and prior to treat him with Cardizem. His heart rate started down to 120s whereas it was about 140 consistently. IV fluids are not even intermediate in. We'll select cefepime because he has an acute kidney injury which would give good broad coverage. ECG Initial ECG Impression Date: Aug 09, 2018 Initial ECG Impression Time: 17:54 Initial ECG Rate: 119 Initial ECG Rhythm: A Fib/Flutter Initial ECG Intervals: QT (445) Initial ECG Impression: Atrial Fibrillation w/RVR Initial ECG Comparisson: Unchanged Comment Atrial fibrillation with rapid ventricular response and no acute ST elevation or depression. Diagnostic Imaging Diagonstic Imaging: Xray Plain Films/CT/US/NM/MRI: chest (1v) Comments [facility] [place], [place] NAME: MATTHEW CURTIS [facility] REC#: [id number] PT STATUS: REG ER : 1930 PHYSICIAN: STEVE ADDISON MD ADMIT DATE: 08/09/18/ER Draft Date of Exam:08/09/18 CHEST 1 VIEW, AP/PA ONLY EXAMINATION: Portable semierect AP chest at 6:47 PM INDICATION: Fever There is shallow inspiration when compared to the prior exam of 07/27/2018. Allowing for this technical factor the heart is enlarged but stable. The sternotomy wires, surgical clips and valvular prosthesis seen on the prior study are again evident and no different. There may be a small amount of atelectasis/infiltrate in the left lung base which has developed since the prior exam. The lungs are otherwise generally clear. There is no evidence for overt failure. The mediastinum is not widened. The osseous structures are intact. IMPRESSION: 1. The findings are suspicious for mild left lower lobe pneumonia/atelectasis. Clinical followup is recommended. 2. There is no acute cardiopulmonary abnormality noted otherwise. Dictated on workstation # [id number] Dict: 08/09/18 1908 Trans: 08/09/18 1926 COUNTS INCLUDE 234 BEDS AT THE [facility] [id number] Interpreted by: GRICELDA PÉREZ MD Electronically signed by: Reviewed: Reviewed by Me Departure Impression Primary Impression: Sepsis Qualified Codes: A41.9 - Sepsis, unspecified organism Additional Impressions: Acute kidney injury (nontraumatic) Hypernatremia Pneumonia Qualified Codes: J18.1 - Lobar pneumonia, unspecified organism Atrial fibrillation with rapid ventricular response Disposition: 01 HOME, SELF-CARE Condition: Stable (hospice) Departure-Patient Inst. Decision time for Depature: 20:13 Referrals: VIRGINIA BRUCE DO (PCP/Family) Primary Care Physician Patient Instructions: Palliative Care Add. Discharge Instructions: Comfort cares only. Consult have a long hospice. Notify PCP. The daughter will be visiting a residential in the morning. She has already been notified. Scripts Ondansetron (Ondansetron Odt) 4 Mg Tab.rapdis 4 MG PO Q4H PRN for NAUSEA/VOMITING, #8 TAB 0 Refills Prov: BILL HUYNH 08/09/18 Lorazepam (Lorazepam Intensol) 2 Mg/1 Ml Oral.conc 2 MG PO Q4H PRN for AGITATION for 7 Days, #30 ML 0 Refills Prov: BILL HUYNH 2/3/19 Morphine Sulfate (Morphine Sulfate) 20 Mg/5 Ml Solution 5 MG PO Q1HR PRN for PAIN-BREAKTHROUGH for 7 Days, #1 EA Prov: BILL HUYNH 08/09/18 Atropine Sulfate (Atropine Sulfate) 0.4 Mg/1 Ml Vial 0.4 MG IJ Q4H PRN for THROAT PAIN for 7 Days, #1 VIAL 0 Refills When necessary excessive salivation Prov: BILL HUYNH 08/09/18 Copy Copies To 1: VIRGINIA BRUCE DO BILL HUYNH Aug 09, 2018 18:14
[2018-08-09] MEDS ORDERED: NS IV 1000 ML 1,500 ML IV ONE (18:15)
[2018-08-09 18:20] LABS: CLARITY,URINE SLIGHTLY CLOUDY; COLOR,URINE YELLOW; GLUCOSE, URINE (UA) NEGATIVE (NEGATIVE); KETONES,URINE NEGATIVE (NEGATIVE); LEUKOCYTE ESTERASE ,URINE 1+ (NEGATIVE); NITRITE,URINE NEGATIVE (NEGATIVE); PH,URINE 6 (5-9); PROTEIN,URINE 1+ (NEGATIVE); UROBILINOGEN,URINE 4 MG/DL (NORMAL)
[2018-08-09 18:20] LABS: BASOPHILS % (AUTO) 0 % (0-10); EOSINOPHILS # (AUTO) 0.1 10^3/uL (0.0-0.3); EOSINOPHILS % (AUTO) 1 % (0-10); HEMATOCRIT 38 % (40-54); LYMPHOCYTES # (AUTO) 1.8 X 10^3 (1.0-4.0); LYMPHOCYTES % (AUTO) 14 % (12-44); MEAN CORPUSCULAR HEMOGLOBIN 31 PG (25-34); MEAN CORPUSCULAR HGB CONC 31 G/DL (32-36); MEAN CORPUSCULAR VOLUME 101 FL (80-99); MEAN PLATELET VOLUME 9.4 FL (7.4-10.4); MONOCYTES % (AUTO) 7 % (0-12); NEUTROPHILS # (AUTO) 10.3 X 10^3 (1.8-7.8); NEUTROPHILS % (AUTO) 78 % (42-75); PLATELET COUNT 377 10^3/uL (130-400); RED CELL DISTRIBUTION WIDTH 14.8 % (10.0-14.5); WHITE BLOOD COUNT 13.2 10^3/uL (4.3-11.0)
[2018-08-09 18:32] LABS: INR 1.4 (0.8-1.4); PROTHROMBIN TIME PATIENT 17.6 SEC (12.2-14.7)
[2018-08-09 18:34] LABS: BACTERIA,URINE NEGATIVE /HPF; BILIRUBIN,URINE 1+ (NEGATIVE); RBC,URINE 0-2 /HPF; WBC,URINE 0-2 /HPF
[2018-08-09 18:39] LABS: ALBUMIN 2.7 GM/DL (3.2-4.5); BILIRUBIN,TOTAL 0.7 MG/DL (0.1-1.0); CALCIUM 8.6 MG/DL (8.5-10.1); CREATININE SERUM 1.62 MG/DL (0.60-1.30); POTASSIUM 3.7 MMOL/L (3.6-5.0)
[2018-08-09 18:55] LABS: MAGNESIUM 2.2 MG/DL (1.8-2.4)
[2018-08-09] MEDS ORDERED: CEFEPIME INJECTION 1,000 MG in WATER (STERILE) FOR INJECTION 10 ML IV ONE (19:00)
--- NOTE | 2018-08-09 19:00 | NUR ---
ASSUMED PRIMARY NURSE ROLE
--- NOTE | 2018-08-09 19:15 | NUR ---
UPON ENTERING PT'S ROOM IT WAS NOTED THAT THE PT'S IV SITE HAD BEEN PULLED OUT. STARTED NEW IV IN ALTERNATE SITE.
--- NOTE | 2018-08-09 19:26 | Diagnostic Imaging Report ---
EXAMINATION: Portable semierect AP chest at 6:47 PM INDICATION: Fever There is shallow inspiration when compared to the prior exam of 07/27/2018. Allowing for this technical factor the heart is enlarged but stable. The sternotomy wires, surgical clips and valvular prosthesis seen on the prior study are again evident and no different. There may be a small amount of atelectasis/infiltrate in the left lung base which has developed since the prior exam. The lungs are otherwise generally clear. There is no evidence for overt failure. The mediastinum is not widened. The osseous structures are intact. IMPRESSION: 1. The findings are suspicious for mild left lower lobe pneumonia/atelectasis. Clinical followup is recommended. 2. There is no acute cardiopulmonary abnormality noted otherwise. Dictated by: Dictated on workstation # [id number]
[2018-08-09] MEDS ORDERED: NS (IVPB) 50 ML ONE (19:59)
--- NOTE | 2018-08-09 20:10 | NUR ---
[facility] NOTIFIED OF NEED FOR EMS TO TRANSPORT PT BACK TO [facility] AT THIS TIME.
[2018-08-09] MEDS ORDERED: LORA2ORA PO (20:25)
[2018-08-09] MEDS ORDERED: MORP20SO PO (20:25)
[2018-08-09] MEDS ORDERED: [UNRECOGNIZED DRUG - CODE] IJ (20:25)
[2018-08-09] MEDS ORDERED: ONDA4TAB11 PO (20:25)
[2018-08-09 20:29] VITALS: BP 105/63
== END 2018-08-09 20:33 | disposition home or self-care (01) ==
LOC: EDUNIT# 17:50 → ER 17:52
DX: A41.9 Sepsis, unspecified organism (principal); N17.9 Acute kidney failure, unspecified; J18.9 Pneumonia, unspecified organism; E87.0 Hyperosmolality and hypernatremia; F03.90 Unspecified dementia, unspecified severity, without behavioral disturbance, psychotic disturbance, mood disturbance, and anxiety; I48.91 Unspecified atrial fibrillation; I13.0 Hypertensive heart and chronic kidney disease with heart failure and stage 1 through stage 4 chronic kidney disease, or unspecified chronic kidney disease; I50.9 Heart failure, unspecified; F32.9 Major depressive disorder, single episode, unspecified; E78.00 Pure hypercholesterolemia, unspecified; F22 Delusional disorders; Z98.890 Other specified postprocedural states; Z87.448 Personal history of other diseases of urinary system; Z87.19 Personal history of other diseases of the digestive system; Z82.49 Family history of ischemic heart disease and other diseases of the circulatory system; Z88.1 Allergy status to other antibiotic agents; Z79.01 Long term (current) use of anticoagulants; Z79.82 Long term (current) use of aspirin
CPT/HCPCS: 36415; 51702; 71045; 80053; 81000; 83605; 83735; 85025; 85610; 85730; 87040; 87088; 87804; 93005